=== PATIENT | female | born 1975 | race Caucasian/White ===

== ENCOUNTER → 2016-11-19 | Outpatient (CLI) | payer MEDICARE, OTHER | END | disposition home or self-care (01) | LOC: LABWHC1 10:08 | PROVIDERS: ATTEND Internal Medicine | DX: R10.9 Unspecified abdominal pain (principal) | CPT/HCPCS: 36415; 83690 ==

== ENCOUNTER → 2017-03-09 | Outpatient (CLI) | payer MEDICARE, OTHER ==
--- NOTE | 2017-03-09 15:28 | US ---
EXAMINATION TYPE: US kidneys/renal and bladder DATE OF EXAM: 03/09/2017 3:09 PM COMPARISON: None CLINICAL HISTORY: R31.9 Gross hematuria. Gross hematuria EXAM MEASUREMENTS: Right Kidney: 10.5 x 5.2 x 4.5 cm Left Kidney: 10.3 x 5.2 x 5.0 cm Right Kidney: wnl Left Kidney: wnl Bladder: Contracted Bilateral Jets seen There is no evidence for hydronephrosis at this point in time. No nephrolithiasis is seen. No pily s are identified. The urinary bladder is anechoic. Bilateral ureteral jets are seen. Cortical medullary differentiation is maintained. Kidneys are morphologically normal. Incidental note made of a cystic focus within the right lobe of liver measuring 2.6 cm. IMPRESSION: No significant abnormalities evident. Additional incidental findings above
== END | disposition home or self-care (01) ==
LOC: RADUSWWP 14:48
PROVIDERS: ATTEND Urology
DX: R31.0 Gross hematuria (principal)
CPT/HCPCS: 76770

== ENCOUNTER → 2017-04-09 | Outpatient (CLI) | payer MEDICARE, OTHER ==
--- NOTE | 2017-04-13 10:12 | MM ---
Reason for exam: additional evaluation requested from prior study. Last mammogram was performed 4 years and 9 months ago. History: Patient is postmenopausal. Family history of breast cancer in maternal grandmother at age 50, breast cancer in mother at age 40, and breast cancer in maternal aunt. Physical Findings: Nurse did not find any significant physical abnormalities on exam. MG 3D Diag Mammo W/Cad RYLEE Bilateral CC and MLO view(s) were taken. Prior study comparison: August 22, 2014, mammogram, performed at [facility]. The breast tissue is heterogeneously dense. This may lower the sensitivity of mammography. No significant new findings when compared with previous films. These results were verbally communicated with the patient and result sheet given to the patient on 04/09/17. ASSESSMENT: Benign, BI-RAD 2 RECOMMENDATION: Routine screening mammogram in 1 year if the ultrasound is negative. Ultrasound of the right breast. (in region of right breast palpable by patient) MTDD
== END | disposition home or self-care (01) ==
LOC: RADMAMWWP 14:59
PROVIDERS: ATTEND Surgery
DX: R92.8 Other abnormal and inconclusive findings on diagnostic imaging of breast (principal)
CPT/HCPCS: G0204; G0279

== ENCOUNTER → 2017-04-14 | Outpatient (CLI) | payer MEDICARE, OTHER ==
--- NOTE | 2017-04-14 11:23 | USB ---
Reason for exam: additional evaluation requested from abnormal screening. History: Patient is postmenopausal. Family history of breast cancer in maternal grandmother at age 50, breast cancer in mother at age 40, and breast cancer in maternal aunt. Physical Findings: Nurse Summary: patient states pain to touch at 7-8 o'clock, no palpable noted (nurse linnette). US Breast Workup RT Right breast ultrasound includes all four quadrants, the retroareolar region and axilla. Finding demonstrates no cystic or solid lesion seen. These results were verbally communicated with the patient and result sheet given to the patient on 04/14/17. ASSESSMENT: Negative, BI-RAD 1 RECOMMENDATION: Routine screening mammogram of both breasts in 1 year.
== END | disposition home or self-care (01) ==
LOC: RADUSWWP 10:23
PROVIDERS: ATTEND Surgery
DX: R92.8 Other abnormal and inconclusive findings on diagnostic imaging of breast (principal); Z80.3 Family history of malignant neoplasm of breast

== ENCOUNTER → 2017-06-22 | Outpatient (CLI) | payer MEDICARE, OTHER ==
[2017-06-22 11:12] LABS: Basophils # (A) 0.1 k/uL (0-0.2); Basophils % (A) 1 %; CHCM 36.4; Eosinophils # (A) 0.3 k/uL (0-0.7); Eosinophils % (A) 3 %; HCT 48.6 % (34.0-46.0); HDW 2.68; HGB 16.5 gm/dL (11.4-16.0); Luc # (Auto) 0.15; Luc % (Auto) 2; Lymphocytes # (A) 2.7 k/uL (1.0-4.8); Lymphocytes % (A) 32 %; MCH 31.9 pg (25.0-35.0); MCV 93.6 fL (80.0-100.0); Mean Platelet Volume 7.7; Monocytes # (A) 0.4 k/uL (0-1.0); Monocytes % (A) 5 %; Neutrophils # (A) 4.9 k/uL (1.3-7.7); Neutrophils % (A) 57 %; RBC 5.19 m/uL (3.80-5.40); RDW 13.8 % (11.5-15.5); WBC 8.5 k/uL (3.8-10.6); WBC (Perox) 8.71
[2017-06-22 11:33] LABS: Anion Gap 10 mmol/L; Blood Urea Nitrogen 11 mg/dL (7-17); Calcium 9.3 mg/dL (8.4-10.2); Carbon Dioxide 28 mmol/L (22-30); Chloride 101 mmol/L (98-107); Glucose 130 mg/dL (74-99); Non-African American GFR(MDRD) >60 (>60 ml/min/1.73 sqM); Potassium 3.5 mmol/L (3.5-5.1); Sodium 139 mmol/L (137-145)
== END | disposition home or self-care (01) ==
LOC: LABPAT 10:35
PROVIDERS: ATTEND Urology
DX: Z01.812 Encounter for preprocedural laboratory examination (principal); R35.0 Frequency of micturition; E78.5 Hyperlipidemia, unspecified; N39.46 Mixed incontinence
CPT/HCPCS: 80048; 85025; 87086

== ENCOUNTER 2017-07-08 06:01 | Day surgery (SDC) | payer MEDICARE, OTHER ==
[2017-07-02 13:54] VITALS: BMI 22.3
[~2017-07-08 06:01] MED LIST: GENTAMICIN 120 MG in SODIUM CHLORIDE 0.9% 100 ML IVPB ONE; ceFAZolin 2 GM in SODIUM CHLORIDE 0.9% 100 ML IVPB ONE
[2017-07-08] MEDS ORDERED: LACTATED RINGERS 1,000 ML IV ONE ×2 (06:40→08:56)
[2017-07-08] MEDS ORDERED: LIDOCAINE 1% 20 ML VIAL (10MG/ML) FOR IV START INTRADERMA ONE (06:41)
[2017-07-08] MEDS ORDERED: ONDANSETRON 4 MG/2 ML VIAL IVP ONE (07:05)
[2017-07-08] MEDS ORDERED: DEXAMETHASONE SOD PHOSPHATE 10 MG/ML 1 ML VIAL IV ONE (07:05)
--- NOTE | 2017-07-08 07:52 | P.HPOB ---
History of Present Illness H&P Date: 07/08/17 Chief Complaint: Vaginal prolapse Fe is a 41-year-old female with worsening cystocele. She has worsening stress urinary incontinence which has been present for 7-10 years but now is significantly worse. She did have vaginal hysterectomy for menorrhagia approximately 10 years ago. She feels like there is a large bulge and sheis even more as she wipes following voiding. She is scheduled for a anterior repair with sling from Dr. Wiseman. Risks/benefits/alternatives to this procedure were discussed with the patient in detail and all questions were answered for her prior to proceeding to the operating room it is noted that she reports that her partner's well and out and we will trying to minimal repair to try and save the size and caliber of her vagina but she is aware that should this be done she may not have adequate resolution of her cystocele. All questions are answered for she and her family prior to proceeding to the operating room. On physical exam vital signs are stable and afebrile. Heart regular, lungs clear, extremities without pain. Osteopathic exams unremarkable. Pelvic exam reveals a grade 2 cystocele. Assessment and cystocele. Plan anterior repair with sling from urology. Past Medical History Past Medical History: Asthma, Fibromyalgia, GERD/Reflux, Hyperlipidemia, Hypertension, Myocardial Infarction (HI), Rheumatoid Arthritis (RA), Skin Disorder Additional Past Medical History / Comment(s): palpitations, occ chest tightness( tests all neg per pt). migraines, IBS, psoriasis, urinary leakage, "bladder dropped", fx spine from fall injury in 2009 Last Myocardial Infarction Date:: 1998 History of Any Multi-Drug Resistant Organisms: None Reported Past Surgical History: Hysterectomy, Orthopedic Surgery, Tonsillectomy, Tubal Ligation Additional Past Surgical History / Comment(s): RT HEEL -warts removed, oophorectomy. spinal steroid injections, Past Anesthesia/Blood Transfusion Reactions: Family History of Problems w/ Anesthesia, Motion Sickness Additional Past Anesthesia/Blood Transfusion Reaction / Comment(s): "sister had hard time coming out" Smoking Status: Current every day smoker - Past Family History Father Family Medical History: Deep Vein Thrombosis (DVT) Mother Family Medical History: Deep Vein Thrombosis (DVT) Medications and Allergies Home Medications Medication Instructions Recorded Confirmed Type Hydrocodone/Acetaminophen [Blanch 1 - 2 tab PO Q4-6H PRN 04/19/14 07/08/17 History 10-325] Metoprolol Succinate [Toprol XL] 100 mg PO QAM 04/19/14 07/08/17 History Zolpidem [Ambien] 10 mg PO HS 07/19/15 07/08/17 History Hydrochlorothiazide 25 mg PO QAM 02/14/16 07/08/17 History [Hydrochlorothiazide] Albuterol Inhaler [Ventolin Hfa 2 puff INHALATION TID PRN 07/02/17 07/08/17 History Inhaler] Aspirin/Acetaminophen/Caffeine 2 each PO DAILY PRN 07/02/17 07/02/17 History [Excedrin Migraine Caplet] Gabapentin [Neurontin] 300 mg PO TID 07/02/17 07/08/17 History Ibuprofen 800 mg PO TID PRN 07/02/17 07/02/17 History Omeprazole 40 mg PO DAILY PRN 07/02/17 07/08/17 History diphenhydrAMINE [Benadryl] 100 mg PO HS 07/02/17 07/02/17 History Acetaminophen-Codeine 300-30mg 1 tab PO Q4H 07/08/17 07/08/17 History [Tylenol #3] Chlorhexidine Gluconate [Periogard] 15 ml PO BID 07/08/17 07/08/17 History Penicillin V Potassium [Pen Vee K] 1 tab PO QID 07/08/17 07/08/17 History Allergies Allergy/AdvReac Type Severity Reaction Status Date / Time ketorolac tromethamine Allergy Severe Dyspnea Verified 07/08/17 06:33 [From Toradol] pregabalin [From Lyrica] Allergy Rash/Hives Verified 07/08/17 06:33 varenicline tartrate Allergy Rash/Hives Verified 07/08/17 06:33 [From Chantix] hydromorphone HCl AdvReac Dyspnea Verified 07/08/17 06:33 [From Dilaudid] latex AdvReac Rash/Hives Verified 07/08/17 06:33 Latex, Natural Rubber AdvReac Rash/Hives Verified 07/08/17 07:06 nicotine patch AdvReac Unknown Rash/Hives Uncoded 07/08/17 06:33 Exam Osteopathic Statement: *. No significant issues noted on an osteopathic structural exam other than those noted in the History and Physical/Consult. - Vital Signs Vital signs: Vital Signs Temp Pulse Resp BP Pulse Ox 07/08/17 06:34 97.8 F 70 20 118/69 100
[2017-07-08] MEDS ORDERED: fentaNYL (PF) 50 MCG/ML 2 ML AMP ONE (07:58)
[2017-07-08] MEDS ORDERED: SUCCINYLCHOLINE CHLORIDE 100 MG/5 ML SYR IV ONE (07:58)
[2017-07-08] MEDS ORDERED: MIDAZOLAM 2 MG/2 ML VIAL ONE (07:58)
[2017-07-08] MEDS ORDERED: ePHEDrine SULFATE/0.9% NACL/PF 50 MG/5 ML SYRINGE IV ONE (07:58)
[2017-07-08] MEDS ORDERED: PROPOFOL 10 MG/ML 20 ML VIAL IV ONE (07:58)
[2017-07-08] MEDS ORDERED: LIDOCAINE 1% INJ 10MG/ML (20 ML MDV) ONE (07:58)
[2017-07-08] MEDS ORDERED: EPINEPHrine 1 MG/ML 1 ML AMP SQ ONE (08:27)
[2017-07-08] MEDS ORDERED: GENTAMICIN 40 MG/ML 2 ML VIAL IRRIGATION ONE (08:28)
[2017-07-08] MEDS ORDERED: BACITRACIN 500 UNIT/GM OINT 28.4 GM TUBE TOPICAL ONE (08:52)
--- NOTE | 2017-07-08 08:59 | P.OP ---
Date of Procedure: 07/08/17 Preoperative Diagnosis: Cystocele with stress urinary incontinence Postoperative Diagnosis: Same Procedure(s) Performed: Anterior repair and sling performed by urology Implants: Anesthesia: ROLAND Surgeon: Yeyo Kirk Cosmetics Presser #1: Nelson Washburn Pathology: none sent Condition: stable Disposition: floor Indications for Procedure: Operative Findings: Grade 2 cystocele repaired Description of Procedure: Patient was taken to the operating suite where a general anesthetic was found be adequate. She was prepped and draped in the normal sterile fashion and placed in the dorsal lithotomy position. Initially a weighted speculum was inserted into the vagina and apex of the cystocele was identified. It was grasped into Allis clamps and dilute epinephrine solution was injected subcuticularly. Knife was then used to incise this tissue and then Metzenbaum scissor was used to undermine the tissue and continue the incision to approximately 1 cm below the urethra. Once this was accomplished using Allis clamps delineating the boundaries of the cystocele blunt and sharp dissection the cystocele was done. Was dissected back far enough for sling to be placed and then 3 Cherelle plication sutures were placed underneath the bladder. Once this was accomplished placed a Monarc sling please see his dictation for information regarding this procedure. Once this was completed I did return and placed one last Cherelle plication suture underneath the urethral area and then using Metzenbaum scissors excision of excess vaginal mucosa was done and the full incision was then closed with 0 Vicryl suture in a running locking fashion. Once this was accomplished Zapata cath was replaced and vaginal packing was placed in the vagina. Sponge, lap, needle counts were then all correct 2 and patient was taken to the recovery room in stable and satisfactory condition.
--- NOTE | 2017-07-08 09:07 | P.OP ---
Date of Procedure: 07/08/17 Preoperative Diagnosis: Mixed Urinary Incontinence Postoperative Diagnosis: Same Procedure(s) Performed: Obtryx Trans-Obturator Sling Implants: Anesthesia: CRISTINA Surgeon: Nelson Washburn Manager Investment #1: Yeyo Kirk Estimated Blood Loss (ml): 40 IV fluids (ml): 900 Pathology: none sent Condition: stable Disposition: PACU Indications for Procedure: She is a 41-year-old woman with mixed incontinence. The stress component is predominant, and requires the use of approximately 4 pads daily. Examination reveals evidence of a grade 2 cystocele, along with urethral hypermobility. Stress incontinence is demonstrated, and a Lico test is positive. I reviewed alternative treatment options with the patient in detail. I explained the need for a concurrent cystocele repair. I discussed the controversy regarding the use of synthetic slings with her. She has elected to undergo an anterior repair with TOT sling. She understands that the urge component of her incontinence may worsen following this procedure. She has experienced gross hematuria. A renal ultrasound showed no urologic abnormalities. Cystoscopy revealed a slight irregularity adjacent to the left ureteral orifice, not suspicious for malignancy. Urine cytology was negative. A bladder biopsy will be obtained if the bladder lesion is suspicious at the time of surgery. Operative Findings: No abnormalities noted other than cystocele. Description of Procedure: The patient was taken to the operating room and placed in the dorsal lithotomy position, with her legs supported in Reji stirrups. The perineum, lower abdomen, and vagina were prepped and draped sterilely. A 16-Bermudian Zapata catheter was placed. Dr. Kirk made an anterior midline vaginal incision over the urethra and reduced the cystocele. Metzenbaum scissors were used to dissect laterally within the submucosal plane, to the inferior pubic ramus. The scalpel was used to make bilateral groin incisions at the level of the clitoris. Subcutaneous tissues were spread with a hemostat. Each of the helical needles were passed through the respective groin incision, and turned such that the needle tip wrapped around the pubis. The needle tips were guided digitally into the vaginal incision. The Obtryx graft, which had been previously soaked in antibiotic solution, was secured to the needle tips in the standard fashion. The needles were then withdrawn, and the position of the graft was adjusted such that it overlie the mid urethra, as desired. With a hemostat placed between the graft and the urethra to prevent tension of the graft over the urethra, the plastic sheath was removed from the ends of the graft. The ends of the graft were cut beneath the skin incisions, and these incisions were closed using 4-0 Vicryl suture in a subcuticular fashion. Hemostasis within the vaginal incision was adequate, and the vaginal incision was closed using 2-0 Vicryl suture in a running fashion. Cystoscopy was performed. The 30 lens was used to introduce the 19-Bermudian Storz cystoscopic sheath through the urethra and into the bladder under direct vision. The urethra and bladder were unremarkable. There was no evidence of perforation. Both ureteral orifices were of normal anatomic location and configuration, and clear urine effluxed from both. No tumors or foreign bodies were seen. Specifically, and adjacent to the left ureteral orifice was a small area of squamous metaplasia, not suspicious for malignancy. The cystoscope was removed, and the Zapata catheter was replaced into the bladder. Dr. Kirk at this time placed sutures to complete the anterior repair. He excised the redundant vaginal mucosa and closed the vaginal incision with Vicryl suture in a running fashion. Vaginal packing was placed. All sponge and needle counts were correct. The patient tolerated the procedure well was taken to the recovery room in stable condition.
[2017-07-08] MEDS ORDERED: ONDANSETRON 4 MG/2 ML VIAL IVP PRN (09:08)
[2017-07-08] MEDS ORDERED: HYDROcodone/APAP 5-325MG 1 EACH TAB PO PRN ×2 (09:10)
[2017-07-08] MEDS ORDERED: GENTAMICIN IN NACL ISO-OSM PMX 80 MG in SALINE 1 100ML.BAG IVPB STA (09:17)
[2017-07-08] MEDS: HYDROmorphone 1 MG/ML 1 ML SYRINGE IVP ONE ×4 (09:22→09:39)
[2017-07-08] MEDS ORDERED: PANTOPRAZOLE 40 MG TABLET PO PRN (13:33)
[2017-07-08] MEDS ORDERED: ASPIRIN-ACET-CAFF 250-250-65MG 1 EACH TAB PO PRN (13:33)
[2017-07-08] MEDS ORDERED: ALBUTEROL NEBULIZED 2.5 MG/3 ML INHALATION PRN (13:33)
[2017-07-08] MEDS: NICOTINE 21MG/24HR PATCH TRANSDERM SCH (14:05)
[2017-07-08] MEDS ORDERED: GENTAMICIN IN NACL ISO-OSM PMX 80 MG in SALINE 1 100ML.BAG IVPB ONE ×2 (15:00)
[2017-07-08] MEDS ORDERED: GENTAMICIN 80 MG in SODIUM CHLORIDE 0.9% 100 ML IVPB ONE (15:00)
[2017-07-08] MEDS: HYDROcodone/APAP 10-325MG 1 EACH TAB PO PRN ×2 (15:34→20:25)
[2017-07-08] MEDS: DEXTROSE 5%-0.45% NACL 1,000 ML IV SCH (15:38)
[2017-07-08] MEDS: GABAPENTIN 300 MG CAP PO SCH ×2 (15:38→22:06)
[2017-07-08] MEDS: ceFAZolin 1,000 MG in DEXTROSE/WATER 1 50ML.BAG IVPB SCH ×2 (15:58→23:57)
[2017-07-08] MEDS ORDERED: ceFAZolin 1 GM in SODIUM CHLORIDE 0.9% 100 ML IVPB SCH (16:00)
[2017-07-08] MEDS: IBUPROFEN 800 MG TAB PO PRN (18:29)
[2017-07-08] MEDS ORDERED: ZOLPIDEM 10 MG TAB PO SCH (21:00)
[2017-07-09 00:19] VITALS: RESP 16
[2017-07-09] MEDS: DEXTROSE 5%-0.45% NACL 1,000 ML IV SCH (03:31)
[2017-07-09] MEDS: HYDROcodone/APAP 10-325MG 1 EACH TAB PO PRN (07:45)
[2017-07-09] MEDS: ceFAZolin 1,000 MG in DEXTROSE/WATER 1 50ML.BAG IVPB SCH (07:57)
[2017-07-09 08:04] VITALS: BP 105/67; PULSE 80; TEMP 98.2
[2017-07-09] MEDS: GABAPENTIN 300 MG CAP PO SCH (08:05)
[2017-07-09] MEDS: NICOTINE 21MG/24HR PATCH TRANSDERM SCH (08:06)
[2017-07-09] MEDS ORDERED: METOPROLOL SUCCINATE (ER) 100 MG TAB.ER.24H PO SCH (09:00)
[2017-07-09] MEDS ORDERED: HYDROCHLOROTHIAZIDE 25 MG TAB PO SCH (09:00)
[2017-07-09] MEDS: IBUPROFEN 800 MG TAB PO PRN (09:30)
--- NOTE | 2017-07-09 13:06 | P.DS ---
Providers Expected date of discharge: 07/09/17 Attending physician: Nelson Washburn Primary care physician: Stated None Hospital Course: On the day of admission, the patient underwent an anterior repair with Obtryx trans-obturator sling. The perioperative course was unremarkable. The Zapata catheter was removed on the first postoperative day, and she was able to void. She reported some hesitancy, but bladder emptying was adequate. She denies stress incontinence. She experienced some right hip pain, which is chronic for her. This was improving as she ambulated. She reported right medial groin pain , which she states she has been experiencing recently but it has worsened postoperatively. She also reports mild dysuria. She has been afebrile with stable vital signs. Her blood pressure was somewhat low, and her Metoprolol was held for this reason. Procedures: Anterior repair with Obtryx trans-obturator sling on 07/08/2017. Patient Condition at Discharge: Good Plan - Discharge Summary New Discharge Prescriptions: New Cephalexin [Keflex] 500 mg PO Q8HR #15 cap HYDROcodone/APAP 10-325MG [[place] 10-325] 1 tab PO Q4HR PRN #20 tab PRN Reason: Moderate To Severe Pain No Action Hydrocodone/Acetaminophen [[place] 10-325] 1 - 2 tab PO Q4-6H PRN PRN Reason: Pain Metoprolol Succinate [Toprol XL] 100 mg PO QAM Zolpidem [Ambien] 10 mg PO HS Hydrochlorothiazide [Hydrochlorothiazide] 25 mg PO QAM Gabapentin [Neurontin] 300 mg PO TID Ibuprofen 800 mg PO TID PRN PRN Reason: Pain Omeprazole 40 mg PO DAILY PRN PRN Reason: Heartburn Albuterol Inhaler [Ventolin Hfa Inhaler] 2 puff INHALATION TID PRN PRN Reason: sob Aspirin/Acetaminophen/Caffeine [Excedrin Migraine Caplet] 2 each PO DAILY PRN PRN Reason: Headache diphenhydrAMINE [Benadryl] 100 mg PO HS Chlorhexidine Gluconate [Periogard] 15 ml PO BID Penicillin V Potassium [Pen Vee K] 1 tab PO QID Acetaminophen-Codeine 300-30mg [Tylenol #3] 1 tab PO Q4H Discharge Medication List Hydrocodone/Acetaminophen [[place] 10-325] 1 - 2 tab PO Q4-6H PRN 04/19/14 [ History] Metoprolol Succinate [Toprol XL] 100 mg PO QAM 04/19/14 [History] Zolpidem [Ambien] 10 mg PO HS 07/19/15 [History] Hydrochlorothiazide [Hydrochlorothiazide] 25 mg PO QAM 02/14/16 [History] Albuterol Inhaler [Ventolin Hfa Inhaler] 2 puff INHALATION TID PRN 07/02/17 [ History] Aspirin/Acetaminophen/Caffeine [Excedrin Migraine Caplet] 2 each PO DAILY PRN [History] Gabapentin [Neurontin] 300 mg PO TID 07/02/17 [History] Ibuprofen 800 mg PO TID PRN 07/02/17 [History] Omeprazole 40 mg PO DAILY PRN 07/02/17 [History] diphenhydrAMINE [Benadryl] 100 mg PO HS 07/02/17 [History] Acetaminophen-Codeine 300-30mg [Tylenol #3] 1 tab PO Q4H 07/08/17 [History] Chlorhexidine Gluconate [Periogard] 15 ml PO BID 07/08/17 [History] Penicillin V Potassium [Pen Vee K] 1 tab PO QID 07/08/17 [History] Cephalexin [Keflex] 500 mg PO Q8HR #15 cap 07/09/17 [Rx] HYDROcodone/APAP 10-325MG [[place] 10-325] 1 tab PO Q4HR PRN #20 tab 07/09/17 [Rx] Follow up Appointment(s)/Referral(s): Nelson Washburn MD [STAFF PHYSICIAN] - 07/14/17 2:40 pm (You have an appointment with Dr Washburn on Wednesday, July 14, 2017 at 2:40 pm) Patient Instructions/Handouts: How to Stop Smoking (DC), How to Use an Incentive Spirometer (DC), Cigarette Smoking and Your Health (GEN), Anterior Vaginal Repair (DC), Bladder Sling Procedure (DC) Activity/Diet/Wound Care/Special Instructions: Activity as tolerated, rest as needed. No housework, no stooping or bending, no driving, no heavy lifting, no tub baths , no pools, no hot tubs. May shower. Use incentive spirometer every hour for the next several days. Notify Dr Washburn if you develop a fever, increase in pain, bleeding from your incisions or your vagina. Notify Dr Washburn if you have any difficulty in urinating. Drink plenty of fluids. Discharge Disposition: HOME SELF-CARE
== END 2017-07-09 13:25 | disposition home or self-care (01) ==
LOC: OR 06:01 → 6PED 09:08 → OR 07-09 13:25
PROVIDERS: ATTEND Urology
DX: N39.46 Mixed incontinence (principal); N81.10 Cystocele, unspecified; G89.29 Other chronic pain; M25.551 Pain in right hip; Z90.710 Acquired absence of both cervix and uterus; J45.909 Unspecified asthma, uncomplicated; M79.7 Fibromyalgia; K21.9 Gastro-esophageal reflux disease without esophagitis; E78.5 Hyperlipidemia, unspecified; I10 Essential (primary) hypertension; M06.9 Rheumatoid arthritis, unspecified; K58.9 Irritable bowel syndrome, unspecified; G43.909 Migraine, unspecified, not intractable, without status migrainosus; L40.9 Psoriasis, unspecified; F17.200 Nicotine dependence, unspecified, uncomplicated; I25.2 Old myocardial infarction; Z79.899 Other long term (current) drug therapy; Z88.5 Allergy status to narcotic agent; Z88.8 Allergy status to other drugs, medicaments and biological substances; Z91.040 Latex allergy status
CPT/HCPCS: 57288; 57240; C1771; S4990 ×2; J2250; J0171; J1580 ×2; J1100; J0690 ×3; J2405; J2001; J3010; J1170; J0330; J2704

== ENCOUNTER → 2018-03-03 | Outpatient (CLI) | payer MEDICARE, OTHER ==
[2018-03-03 13:04] VITALS: BP 129/84; PULSE 79; RESP 79
--- NOTE | 2018-03-03 13:38 | P.PAINPG ---
Subjective Progress Note Date: 03/03/18 Principal diagnosis: Lumbar spondylosis This is a 42-year-old woman with a history of pain in multiple locations. She has a history of low back pain which was treated very successfully with a lateral lumbar radio frequency ablation proxy 4 years ago. She reports the symptoms have returned and she has significant pain in her low back and buttocks at this time. She also has pain in her neck which radiates into her shoulder blades and arms. She had a recent cervical MRI which demonstrated a C5 6 left paracentral disc protrusion as well as a C6 7 right paracentral disc protrusion. She has pain in her hands it is going to be seeing a hand specialist near future. She also scheduled to see a lead android developer. She denies any bowel or bladder dysfunction. Objective - Vital Signs Vital signs: Vital Signs 03/03/18 13:01 Pulse Rate 79 Respiratory 79 H Rate Blood Pressure 129/84 O2 Sat by Pulse 99 Oximetry Physical Examination : 1-Constitutional : Cooperative , not in acute distress . 2-HEENT : No obvious masses. Normocephalic. 3- Respiratory : Chest clear to auscultation. 4- Cardiovascular : regular rate and rhythm. 5- Gastrointestinal: abdomen soft no tenderness , bowel sounds positive all four quadrants, no organomegaly . 6- Genitourinary : Deferred . 7- Integumentary : No cellulitis , no ulcers, normal skin turgor, no cyanotic. 8- neurologic : She does trace decreased strength in the upper extremities globally however this seems to be effort dependent. 9- psychatric : alert, oriented, appropriate affect , intact judgment and insight . Affect congruent with situation. 10- musculoskeltal: normal gait, facet loading maneuvers are very positive bilaterally in the lumbar spine. Straight leg raise is negative bilaterally. She is tender to palpation over the lumbar facet joints. Cervical facet loading maneuvers are also positive. - Exam Physical Examination : 1-Constitutional : Cooperative, anxious appearing. Hypomanic. 2-HEENT : No obvious masses. Normocephalic. 3- Respiratory : Chest clear to auscultation. 4- Cardiovascular : Tachycardic 5- Gastrointestinal: abdomen soft no tenderness , bowel sounds positive all four quadrants, no organomegaly . 6- Genitourinary : Deferred . 7- Integumentary : No cellulitis , no ulcers, normal skin turgor, no cyanotic. 8- neurologic : No focal motor or sensory deficits reflexes intact at the patella bilaterally 9- psychatric : alert, oriented, appropriate affect , intact judgment and insight . 10- musculoskeltal: normal gait Assessment and Plan Plan: Follow-up plan: Medications: Patient will follow up with her primary care physician for medications. Procedures: We'll schedule patient for right-sided lumbar radio frequency ablation at the L4, L5 and sacral alar levels. She had this performed approxi- 4 years ago and it was very successful. We will then follow up with a left- sided radio frequency ablation of the lumbar spine in the aforementioned levels. Once her low back is under good condition we will move on to a cervical epidural steroid injection to help with her upper extremity pain and numbness. Referrals: None Additional tests ordered: None Next follow-up visit: Right lumbar radiofrequency ablation with fluoroscopy and sedation Time with Patient: Less than 30 PQRS Measure Charge Sheet Measure #226: Tobacco Use: Screen & Cessation Intervention: Pt screened for tobacco use AND intervention given Measure #111: Pneumonia Vaccination: Pneumococcal vaccine NOT administered or previously given Measure #47: Advance Care Plan: Advance care planning discussed & documented, pt chose/unable to give Measure #408: Opioid Therapy Follow-up Evaluation: Patient had NO f/u eval minimum every 3 months during opioid therapy Measure #317: Preventitive Care & Scrn High Bld Press & F/U: Normal blood pressure, f/u not required Measure #128: Body Mass Index (BMI) Screening & Follow-up: BMI documented within normal parameters Measure #131: Pain Assessment & Follow-up: Pain positive & plan documented Measure #431: Unhealthy Alcohol Use Preventative Care & Scrn: Patient not identified as an unhealthy alcohol user PQRS Narrative: Smoking Status Current every day smoker Narcotic Agreement Date Signed 02/12/14 Hx Alcohol Use (MH) Yes Home Medications: Ambulatory Orders Hydrocodone/Acetaminophen [[place] 10-325] 1 - 2 tab PO Q4-6H PRN 04/19/14 Metoprolol Succinate [Toprol XL] 100 mg PO QAM 04/19/14 Zolpidem [Ambien] 10 mg PO HS 07/19/15 Hydrochlorothiazide [Hydrochlorothiazide] 25 mg PO QAM 02/14/16 Albuterol Inhaler [Ventolin Hfa Inhaler] 2 puff INHALATION TID PRN 07/02/17 Aspirin/Acetaminophen/Caffeine [Excedrin Migraine Caplet] 2 each PO DAILY PRN Gabapentin [Neurontin] 300 mg PO TID 07/02/17 Ibuprofen 800 mg PO TID PRN 07/02/17 Omeprazole 40 mg PO DAILY PRN 07/02/17 diphenhydrAMINE [Benadryl] 100 mg PO HS 07/02/17 Acetaminophen-Codeine 300-30mg [Tylenol #3] 1 tab PO Q4H 07/08/17 Chlorhexidine Gluconate [Periogard] 15 ml PO BID 07/08/17 Penicillin V Potassium [Pen Vee K] 1 tab PO QID 07/08/17 Cephalexin [Keflex] 500 mg PO Q8HR #15 cap 07/09/17 HYDROcodone/APAP 10-325MG [[place] 10-325] 1 tab PO Q4HR PRN #20 tab 07/09/17 Albuterol Nebulized [Ventolin Nebulized] 2.5 mg INHALATION QID PRN #125 nebu 04/17 Ondansetron Odt [Zofran Odt] 4 mg PO Q8HR PRN #10 tab 10/06/17 Potassium Chloride ER [K-Dur 20] 20 meq PO DAILY #3 tab 10/06/17 Controlled Substance Measures - Controlled Substance Measures Is patient prescribed a controlled substance at discharge?: No If prescribed controlled substance>3 days was MAPS reviewed?: No When asked, does pt state using other controlled substances?: No
== END ==
LOC: PNWHC3 12:39
PROVIDERS: ATTEND Pain Medicine Pain Medicine
DX: M47.816 Spondylosis without myelopathy or radiculopathy, lumbar region (principal); F17.200 Nicotine dependence, unspecified, uncomplicated; Z79.899 Other long term (current) drug therapy; Z79.891 Long term (current) use of opiate analgesic; Z79.2 Long term (current) use of antibiotics; Z79.82 Long term (current) use of aspirin
CPT/HCPCS: 99211

== ENCOUNTER 2018-04-04 06:46 | Day surgery (SDC) | payer MEDICARE, OTHER ==
[2018-03-30 09:52] VITALS: BMI 24.0
[2018-04-04 07:57] VITALS: RESP 16; TEMP 97
[2018-04-04] MEDS ORDERED: LIDOCAINE 1% 20 ML VIAL (10MG/ML) FOR IV START INTRADERMA ONE (08:00)
[2018-04-04] MEDS: LACTATED RINGERS 1,000 ML IV SCH ×2 (08:00→08:02)
--- NOTE | 2018-04-04 08:29 | P.PCN ---
Date of Procedure: 04/04/18 Procedure(s) Performed: PREOPERATIVE DIAGNOSIS: 1-Lumbar Spondylosis with Facet Arthropathy without myelopathy. 2- Lumber degenerative disc disease. POSTOPERATIVE DIAGNOSIS: 1- Lumbar Spondylosis with Facet Arthropathy without myelopathy. 2- Lumber degenerative disc disease. PROCEDURES : Right Radiofrequency thermocoagulation, L3-L4, L4-L5, and L5-S1 medial branch, with fluoroscopic guidance ANESTHESIA: Moderate sedation with intravenous versed 4 mg and fentaneyl 150 mcg and local infiltration with lidocaine 1% 6 ml EBL: Minimal PROCEDURE INDICATION: The patient with low back pain secondary to lumbar facet arthropathy who had more than 50% relief of her pain with previous diagnostic lumbar medial branch block with bupivacaine.,we have done radiofrequency ablation of the medial branch in the past, and she gets excellent pain relief She is here today to have this radiofrequency ablation of the medial branch, examination today was positive for facet loading this and the lumbar area PROCEDURE DESCRIPTION / TECHNIQUE: The patient was seen and identified in the preoperative area. Risks, benefits, complications, including but not limited to risk of infection ,bleeding , allergic reactions to the medications and no complete pain releife , and alternatives were discussed with the patient, the patient agreed to proceed with the procedure and signed the consent. IV was started. Vital signs remained stable throughout the procedure. Patient was taken to the OR and time out was completed. The patient was placed in the prone position on the procedure table. The lumber area was prepped and draped in the usual sterile fashion. . Vital signs were closely monitored during the procedure .IV sedation was used during the procedure to decrease patients anxiety. Using AP and then oblique fluoroscopy, the ``eye of the Carlo dog corresponding to the connection between the superior and transverse articular processes of right L3, L4, and L5 were identified, marked, and localized with 1 % lidocaine. Subsequently, a 18 [id number] radiofrequency cannula with a 10- mm active tip was advanced guided by fluoroscopy to each of the ``eyes of the Carlo dog at right L3, L4, and L5. Each site then underwent sensory testing at 50 Hz and 0 to 1 volt and motor testing at 2.5 Hz and 0 to 3 volt with local stimulation, but no radicular symptoms down the legs. Thereafter the right L3-4, L4-5, and L5-S1 sites underwent radiofrequency thermocoagulation at 80 degrees celsius for 90 seconds after injecting 0.5 ml of PF lidocaine 1%. then After the thermocoagulation done , 1 ml of the block solution containing Kenalog 40 mg and 3 ml of marcain 0.5% was injected at the right L3-4 , L4-5 , and L5-S1, levels after negative aspiration of CSF and blood and with no paresthesias. Cannulas were retracted while injecting lidocaine 1% until the needle is out. At the end of the procedure, the skin was cleansed and bandages were applied. COMPLICATIONS: No acute complications. DISPOSITION / PLANS: The patient was placed in a supine position and transferred to the recovery area in a stable condition for observation and was discharged from the recovery room after meeting discharge criteria. Home discharge instructions given to the patient by the staff. The patient was reexamined prior to discharge. The patient will schedule a follow up in the clinic in 2-4 weeks.
[2018-04-04] MEDS ORDERED: IV FLUID CONTINUATION 1,000 ML IV ONE (08:32)
[2018-04-04 08:50] VITALS: BP 125/86; PULSE 70
--- NOTE | 2018-04-04 10:39 | FL ---
Fluoroscopy HISTORY: Pain 12 seconds fluoroscopy time supplied to the referring clinician. 3 intraoperative C-arm images docum ent the procedure. See dictated report from anesthesia.
== END 2018-04-04 09:08 | disposition home or self-care (01) ==
LOC: ORPAIN 06:46
PROVIDERS: ATTEND Specialist
DX: M47.816 Spondylosis without myelopathy or radiculopathy, lumbar region (principal); M51.36 Other intervertebral disc degeneration, lumbar region; J45.909 Unspecified asthma, uncomplicated; I10 Essential (primary) hypertension; Z88.5 Allergy status to narcotic agent; Z88.6 Allergy status to analgesic agent; Z91.040 Latex allergy status; Z88.8 Allergy status to other drugs, medicaments and biological substances
CPT/HCPCS: 64635; 64636 ×2; J2250; J3301; J3010; 99152

== ENCOUNTER → 2018-04-26 | Outpatient (CLI) | payer MEDICARE, OTHER ==
[2018-04-26 12:20] VITALS: BP 117/65; PULSE 84; RESP 18
--- NOTE | 2018-04-26 16:21 | P.PAINPG ---
Subjective Progress Note Date: 04/26/18 This is follow-up visit for this patient with a history of severe and chronic low back pain secondary to lumbar degenerative disc disease, lumbar facet arthropathy, We have done an interventional pain procedure status post radiofrequency ablation of the medial branch lumbar area right-sided L3 4/L4 5/L5-S1 which was done in April 2018, she reported that her low back pain improved significantly, and currently she is complaining of severe neck pain, occasional headache and also she is complaining of severe mid back pain, Patient denies any motor or sensory deficit, denies any change in the bowel movement or urination, patient denies any fever or night sweats. Objective - Vital Signs Vital signs: Vital Signs Temp Pulse 84 04/26/18 12:08 Resp 18 04/26/18 12:08 BP 117/65 04/26/18 12:08 Pulse Ox 96 04/26/18 12:08 Intake & Output 04/25/18 04/26/18 04/26/18 18:59 06:59 18:59 Weight 63.503 kg - Exam Physical Examinations : 1-Constitutiona : Cooperative , not in acute distress . 2-HEENT : nech ; supple , no Lymphadenopathy , normal thyroid size . eyes : no ptosis , no icterus , no photophobia . ENT : normal of hearing , normal oropharynx , no Thrush . 3- Respiratory : Chest clear to auscultations Bilaterally , no wheezing , no Rhonchi . 4- Cardiovascular : regular rate and rhythem , S1 , S2 , no S3 , no S4. 5- Gastrointestinal : abdomen soft no tenderness , bowel sounds , no organomegally . 6- Genitourinary : Defferred . 7- neurologic : Cranial nerve II to XII intact , no focal neurological deffecit . 8-psychatric : alert , oriented X 3 , appropriate affect , intact judgment and insight . 9-Lymphatic : no Lymphadenopathy . 10- musculoskeltal : cervical spine = motor stregnth in the deltoid and biceps, motor stregnth biceps and the wrist extensors (C6) . motor stregnth in the triceps muscle . deep tendon reflexes normal at the biceps Right , Left normal at the brachioradia Right , Left Normal at the triceps Right ,Left cervical facet loading test positive. Multiple trigger point identified in the thoracic paravertebral muscles T7 to T9 levels After facet loading test thoracic area , Lumber spine = normal moter stegnth lower extremities ,thigh and legs .5/5 deep tendon reflexes : normal Knee Jerk , normal ankle Jerk . MRI of the cervical spine reviewed and it showed that patient had C5 6 and C6 7 disc protrusion Assessment and Plan Plan: Assessment and plan=1-chronic severe low back pain secondary to lumbar spondylosis Pain improved after the radiofrequency ablation of the medial branch lumbar area right side L3/L4 5/L5-S1 2-mid back pain secondary to myofascial pain syndrome thoracic area patient could benefit from trigger point injection thoracic area. 3-neck pain secondary to cervical disc protrusion C5-C6 C6 7 levels patient could benefit from cervical epidural steroid injections Procedure risk and benefits and alternatives were discussed with the patient she agreed with the preceding PQRS Measure Charge Sheet Measure #130: Documentation of Current Meds in Medical Chart: Patient's medications documented in chart Measure #226: Tobacco Use: Screen & Cessation Intervention: Pt screened for tobacco use AND intervention given Measure #111: Pneumonia Vaccination: Pneumococcal vaccine NOT administered or previously given Measure #47: Advance Care Plan: Advance care planning discussed & documented, plan or surrogate given Measure #412: Opioid Treatment Agreement: No documentation of signed opioid treatment agreement Measure #408: Opioid Therapy Follow-up Evaluation: Patient had NO f/u eval minimum every 3 months during opioid therapy Measure #317: Preventitive Care & Scrn High Bld Press & F/U: Normal blood pressure, f/u not required Measure #128: Body Mass Index (BMI) Screening & Follow-up: BMI documented within normal parameters Measure #131: Pain Assessment & Follow-up: Pain positive & plan documented, Follow-up scheduled Measure #431: Unhealthy Alcohol Use Preventative Care & Scrn: Patient not identified as an unhealthy alcohol user PQRS Narrative: Smoking Status Current every day smoker Do You Want the Pneumonia No Vaccine AT THIS TIME? Narcotic Agreement Date Signed 02/12/14 Blood Pressure 117/65 Pain Intensity [Neck] 4 Pain Intensity [Upper Back] 6 Hx Alcohol Use (MH) Yes Home Medications: Ambulatory Orders Metoprolol Succinate [Toprol XL] 100 mg PO QAM 04/19/14 Zolpidem [Ambien] 10 mg PO HS 07/19/15 Hydrochlorothiazide [Hydrochlorothiazide] 25 mg PO QAM 02/14/16 Gabapentin [Neurontin] 300 mg PO TID PRN 07/02/17 Ibuprofen 800 mg PO TID PRN 07/02/17 Omeprazole 40 mg PO DAILY PRN 07/02/17 Atorvastatin [Lipitor] 1 tab PO HS 03/03/18 Ergocalciferol (Vitamin D2) [Vitamin D2] 1 tab PO WEEKLY 03/03/18 Fluticasone Propionate [Flovent Hfa 110mcg] 1 puff INHALATION BID PRN 03/03/18 Magnesium 1 cap PO DAILY 03/03/18 Mirtazapine [Remeron] 7.5 mg PO HS 03/03/18 Potassium Chloride ER [K-Dur 20] 20 meq PO TID 03/03/18 Controlled Substance Measures - Controlled Substance Measures Is patient prescribed a controlled substance at discharge?: No When asked, does pt state using other controlled substances?: No If prescribed controlled substance>3 days was MAPS reviewed?: No If Rx opioid, was Start Talking consent form obtained?: No If opioid is for acute pain is fill amount 7 days or less?: No Was information provided regarding opioid addiction?: No
== END | disposition home or self-care (01) ==
LOC: PNWHC3 11:58
PROVIDERS: ATTEND Specialist
DX: G89.29 Other chronic pain (principal); M54.5 Low back pain; M51.36 Other intervertebral disc degeneration, lumbar region; M47.816 Spondylosis without myelopathy or radiculopathy, lumbar region; M46.86 Other specified inflammatory spondylopathies, lumbar region; M50.222 Other cervical disc displacement at C5-C6 level; M79.1 Myalgia; F17.200 Nicotine dependence, unspecified, uncomplicated; Z79.1 Long term (current) use of non-steroidal anti-inflammatories (NSAID); Z79.899 Other long term (current) drug therapy
CPT/HCPCS: 99211

== ENCOUNTER 2018-05-10 09:12 | Day surgery (SDC) | payer MEDICARE, OTHER ==
[2018-05-09 12:23] VITALS: BMI 24.0
[~2018-05-10 09:12] MED LIST changes: -GENTAMICIN 120 MG in SODIUM CHLORIDE 0.9% 100 ML IVPB ONE; +LACTATED RINGERS 1,000 ML IV SCH; -ceFAZolin 2 GM in SODIUM CHLORIDE 0.9% 100 ML IVPB ONE
[2018-05-10] MEDS ORDERED: LIDOCAINE 1% 20 ML VIAL (10MG/ML) FOR IV START INTRADERMA ONE (10:33)
[2018-05-10 10:42] VITALS: RESP 16; TEMP 98.3
--- NOTE | 2018-05-10 12:29 | P.PCN ---
Date of Procedure: 05/10/18 Procedure(s) Performed: . PROCEDURE 1. Cervical epidural steroid injection under fluoroscopic guidance, C7-T1 2. Cervical epidurogram. 3-trigger point injection thoracic paravertebral muscles (3 on the right side and 2 on the left side mid thoracic area ) PREOPERATIVE DIAGNOSIS: 1- Cervical Herniated Disc Diseases 2-myofascial pain syndrome thoracic area. POSTOPERATIVE DIAGNOSIS: : Same as preoperative diagnosis. ANESTHESIA: Local anesthesia with 1% lidocaine and IV sedation with Versed 3 mg and Fentanyl 100 mcg. EBL 0 PROCEDURE INDICATION: The patient with neck pain and radiculitis unresponsive to conservative treatment consents for procedure. PROCEDURE DESCRIPTION / TECHNIQUE: The patient was seen and identified in the preoperative area. Risks, benefits, complications, including but not limited to infections ,bleeding , allergic reactions to the medications ,and not complete pain releife, and alternatives were discussed with the patient, the patient agreed to proceed with the procedure and signed the consent. Patient was taken to the OR and time out was completed. The patient was placed in the prone position on the procedure table. A pillow was placed under the patients chest to increase the cervical interlaminar space. The cervical area was prepped and draped in the usual sterile fashion. Vital signs were closely monitored during the procedure. Conscious sedation was used during the procedure to decrease patients anxiety. Using anterior-posterior fluoroscopy, the C7-T1 interlaminar space was identified and the skin over this site was marked and then infiltrated with 1% lidocaine subcutaneously. Subsequently, a 20-gauge 3-1/2-inch Tuohy epidural needle was inserted and advanced toward the epidural space by means of the `` hanging-drop technique and guided by AP and lateral fluoroscopy. The correct needle position in the epidural space was verified with the injection of 2 mL of the water soluble contrast dye [id number] and observing an excellent epidurogram with the epidural spread of the dye, after negative aspiration for blood and CSF and in the absence of paresthesias. Again after negative aspiration, mixture containing 20 mg Dexamethasone and 2 ml of preservative- free normal saline injected and a washout of epidurogram was seen. Needle was withdrawn intact, And after the the trigger point which was identified in the preop holding area total of 5 trigger points identified 3 on the right side thoracic paravertebral muscles and 2 on the left side thoracic paravertebral muscles each one of them injected with Marcaine 0.5% 2 mL injected at each trigger point using 25-gauge needle, injection done after negative aspiration and there was no paresthesia during the injection, patient tolerated the procedure well without any complications. Complications= none. Disposition= patient was placed in supine position and transferred to the recovery room area in stable condition and there was no evidence of upper or lower extremity motor or sensory deficit after the procedure patient was discharged from recovery room after discharge criteria met and home discharge instructions was given by the staff and patient will follow with the pain clinic in 2-4 weeks
[2018-05-10] MEDS ORDERED: IV FLUID CONTINUATION 1,000 ML IV ONE ×2 (12:34)
--- NOTE | 2018-05-10 12:51 | FL ---
EXAMINATION TYPE: FL guided pain mgmt statistic DATE OF EXAM: 05/10/2018 CLINICAL HISTORY: Neck pain. TECHNIQUE: Fluoroscopy. COMPARISON: None. FINDINGS: Fluoroscopic guidance was provided during pain relief procedure performed by Dr. Hendrix . A total of 7 seconds of fluoroscopic time was utilized during the procedure and single spot intrao perative image is acquired. Single image acquired shows needle localization near cervicothoracic mireille ction. IMPRESSION: As Above.
[2018-05-10 12:52] VITALS: BP 118/82; PULSE 70
== END 2018-05-10 13:03 | disposition home or self-care (01) ==
LOC: ORPAIN 09:12
PROVIDERS: ATTEND Specialist
DX: M50.10 Cervical disc disorder with radiculopathy, unspecified cervical region (principal); M79.1 Myalgia; Z91.040 Latex allergy status; Z90.710 Acquired absence of both cervix and uterus
CPT/HCPCS: 20553; 62321; J2250; J1100; J3010; Q9966; 99152

== ENCOUNTER 2018-08-21 10:41 | Emergency (ER) | payer MEDICARE, OTHER ==
[2018-08-21 10:49] VITALS: RESP 18
--- NOTE | 2018-08-21 11:21 | XR ---
EXAMINATION TYPE: XR Hip LT and AP Pelvis , 3 VIEWS DATE OF EXAM ORDERED: 08/21/2018 HISTORY: Chronic left hip pain. COMPARISON: None. FINDINGS: Osseous structures about the pelvis are normal. The left hip has a normal appearance. No f racture, dislocation or significant degenerative change is seen. IMPRESSION: NORMAL PELVIS AND LEFT HIP.
--- NOTE | 2018-08-21 11:23 | ED ---
Lower Extremity Injury HPI - General Chief Complaint: Extremity Injury, Lower Stated Complaint: LEFT HIP LUMP Time Seen by Provider: 08/21/18 10:50 Source: patient, RN notes reviewed Mode of arrival: ambulatory Limitations: no limitations - History of Present Illness Initial Comments: This a 42-year-old female presents emergency Department chief complaint left hip pain. Patient states that she normally has back, neck and hip issues secondary fall several years ago. Patient has chronic pain management injections. Patient states she normally favors her right leg or left leg hurts but states this hurts more than usual. She states that on the lateral portion of her hip denies any new injuries. Patient denies fever, chills, redness to her joint, swelling or leg or any paresthesias. Patient states it feels better and certainly position and was worse with extension of her leg. - Related Data Home Medications Medication Instructions Recorded Confirmed Metoprolol Succinate [Toprol XL] 100 mg PO QAM 04/19/14 05/10/18 Zolpidem [Ambien] 10 mg PO HS 07/19/15 05/10/18 Hydrochlorothiazide 25 mg PO QAM 02/14/16 05/10/18 Gabapentin [Neurontin] 300 mg PO TID PRN 07/02/17 05/10/18 Ibuprofen 800 mg PO TID PRN 07/02/17 05/10/18 Omeprazole 40 mg PO DAILY PRN 07/02/17 05/10/18 Atorvastatin [Lipitor] 40 mg PO HS 03/03/18 05/10/18 Ergocalciferol (Vitamin D2) 50,000 tab PO WEEKLY 03/03/18 05/10/18 [Vitamin D2] Fluticasone Propionate [Flovent 1 puff INHALATION BID PRN 03/03/18 05/10/18 Hfa 110mcg] Magnesium 200 mg PO DAILY 03/03/18 05/10/18 Mirtazapine [Remeron] 7.5 mg PO HS 03/03/18 05/10/18 Potassium Chloride ER [K-Dur 20] 20 meq PO BID 03/03/18 05/10/18 Previous Rx's Medication Instructions Recorded predniSONE 50 mg PO DAILY #5 tab 08/21/18 Allergies Allergy/AdvReac Type Severity Reaction Status Date / Time ketorolac tromethamine Allergy Severe Dyspnea Verified 08/21/18 10:49 [From Toradol] pregabalin [From Lyrica] Allergy Rash/Hives Verified 08/21/18 10:49 varenicline tartrate Allergy Rash/Hives Verified 08/21/18 10:49 [From Chantix] hydromorphone HCl AdvReac Dyspnea Verified 08/21/18 10:49 [From Dilaudid] latex AdvReac Rash/Hives Verified 08/21/18 10:49 Latex, Natural Rubber AdvReac Rash/Hives Verified 08/21/18 10:49 nicotine patch AdvReac Unknown Rash/Hives Uncoded 08/21/18 10:49 Review of Systems ROS Statement: Those systems with pertinent positive or pertinent negative responses have been documented in the HPI. ROS Other: All systems not noted in ROS Statement are negative. Past Medical History Past Medical History: Asthma, Fibromyalgia, GERD/Reflux, Hyperlipidemia, Hypertension, Myocardial Infarction ([place]), Musculoskeletal Disorder, Rheumatoid Arthritis (RA), Skin Disorder Additional Past Medical History / Comment(s): HEART PALPITATIONS-RESOLVED. PSORIASIS HEAD. CHRONIC BACK, NECK PAIN; BOTH ARMS & SHOULDERS ALSO; NT RYLEE ARMS. CTS RYLEE. RA HANDS. Last Myocardial Infarction Date:: 1998 History of Any Multi-Drug Resistant Organisms: None Reported Past Surgical History: Hysterectomy, Orthopedic Surgery, Tonsillectomy Additional Past Surgical History / Comment(s): RT HEEL SURG., EPIDURAL INJECTIONS( BACK AND HIPS); Trigger Fingers both hands. MULT PAIN PROC. CTR LT HAND 3 WKS AGO. Past Anesthesia/Blood Transfusion Reactions: Previous Problems w/ Anesthesia, Motion Sickness Additional Past Anesthesia/Blood Transfusion Reaction / Comment(s): SLOW TO AWAKEN FROM ANESTHESIA YEARS AGO X1. Past Psychological History: Anxiety, Depression, Panic Disorder Smoking Status: Current every day smoker - Past Family History Father Family Medical History: Deep Vein Thrombosis (DVT) Mother Family Medical History: Deep Vein Thrombosis (DVT) General Exam Limitations: no limitations General appearance: alert, in no apparent distress Respiratory exam: Present: normal lung sounds bilaterally. Absent: respiratory distress, wheezes, rales, rhonchi, stridor Cardiovascular Exam: Present: regular rate, normal rhythm, normal heart sounds. Absent: systolic murmur, diastolic murmur, rubs, gallop, clicks Extremities exam: Present: other (Tenderness over the lateral portion of the left hip region by the greater trochanteric region patient has pain with range of motion with external rotation and full extension. Leg is neurovascular intact there is no erythema no increased warmth) Neurological exam: Present: reflexes normal. Absent: motor sensory deficit Skin exam: Present: warm, dry, intact, normal color. Absent: rash Course Vital Signs 08/21/18 10:46 Temperature 98 F Pulse Rate 64 Respiratory 18 Rate Blood Pressure 116/81 O2 Sat by Pulse 99 Oximetry Medical Decision Making - Medical Decision Making 42-year-old female sent emergency department for left hip pain. Patient has chronic pain issues she is out of her pain medication. Patient has left hip bursitis will be given an injection of pain meds now, steroids and was discharged on steroids. Return parameters were discussed. Disposition Clinical Impression: Hip bursitis, left Disposition: HOME SELF-CARE Condition: Stable Instructions: Hip Bursitis (ED) Additional Instructions: Please return to the Emergency Department if symptoms worsen or any other concerns. Prescriptions: predniSONE 50 mg PO DAILY #5 tab Is patient prescribed a controlled substance at d/c from ED?: No Referrals: Sushma Vega MD [Primary Care Provider] - 1-2 days Time of Disposition: 11:47
[2018-08-21] MEDS ORDERED: methylPREDNISolone SOD SUCCI 125 MG/2 ML VIAL IM ONE (11:48)
[2018-08-21] MEDS ORDERED: MORPHINE SULFATE 4 MG/ML SYRINGE IM STA (11:48)
[2018-08-21] MEDS ORDERED: HYDROcodone/APAP 10-325MG 1 EACH TAB PO ONE (11:50)
[2018-08-21] MEDS ORDERED: predniSONE 20 MG TAB PO STA (11:50)
[2018-08-21 12:01] VITALS: BP 117/66; PULSE 71; TEMP 97.5
== END 2018-08-21 12:04 | disposition home or self-care (01) ==
LOC: EC 10:41
DX: M70.72 Other bursitis of hip, left hip (principal); J45.909 Unspecified asthma, uncomplicated; E78.5 Hyperlipidemia, unspecified; I10 Essential (primary) hypertension; M79.7 Fibromyalgia; I25.2 Old myocardial infarction; G89.29 Other chronic pain; F32.9 Major depressive disorder, single episode, unspecified; F41.9 Anxiety disorder, unspecified; F17.200 Nicotine dependence, unspecified, uncomplicated; Z88.5 Allergy status to narcotic agent; Z88.6 Allergy status to analgesic agent; Z88.8 Allergy status to other drugs, medicaments and biological substances; Z91.040 Latex allergy status; Z79.899 Other long term (current) drug therapy
CPT/HCPCS: 73502; 99283; J7512

== ENCOUNTER 2018-12-09 01:29 | Emergency (ER) | payer MEDICARE, OTHER ==
[2018-12-09] MEDS ORDERED: IPRATROPIUM-ALBUTEROL 3 ML NEB INHALATION STA (01:47)
--- NOTE | 2018-12-09 01:51 | ED ---
URI HPI - General Chief Complaint: Upper Respiratory Infection Stated Complaint: Asthma Attack Time Seen by Provider: 12/09/18 01:41 Source: patient, RN notes reviewed Mode of arrival: ambulatory Limitations: no limitations - History of Present Illness Initial Comments: 42-year-old female presents emergency department chief complaint of cough congestion. Patient states symptoms started on Wednesday with sinus congestion. She notes over the last day or so she's had increased shortness of breath with her asthma. She is a daily smoker. Patient states that she is using her inhaler at home with some relief. Last use was 3 hours ago. Patient denies any chest pain. Patient states she's felt febrile home, achy. Patient denies any sick contacts. No [id number] medications use. - Related Data Home Medications Medication Instructions Recorded Confirmed Metoprolol Succinate [Toprol XL] 100 mg PO QAM 04/19/14 05/10/18 Zolpidem [Ambien] 10 mg PO HS 07/19/15 05/10/18 Hydrochlorothiazide 25 mg PO QAM 02/14/16 05/10/18 Gabapentin [Neurontin] 300 mg PO TID PRN 07/02/17 05/10/18 Ibuprofen 800 mg PO TID PRN 07/02/17 05/10/18 Omeprazole 40 mg PO DAILY PRN 07/02/17 05/10/18 Atorvastatin [Lipitor] 40 mg PO HS 03/03/18 05/10/18 Ergocalciferol (Vitamin D2) 50,000 tab PO WEEKLY 03/03/18 05/10/18 [Vitamin D2] Fluticasone Propionate [Flovent 1 puff INHALATION BID PRN 03/03/18 05/10/18 Hfa 110mcg] Magnesium 200 mg PO DAILY 03/03/18 05/10/18 Mirtazapine [Remeron] 7.5 mg PO HS 03/03/18 05/10/18 Potassium Chloride ER [K-Dur 20] 20 meq PO BID 03/03/18 05/10/18 Previous Rx's Medication Instructions Recorded predniSONE 50 mg PO DAILY #5 tab 08/21/18 Albuterol Nebulized [Ventolin 2.5 mg INHALATION Q4H PRN #25 nebu 12/09/18 Nebulized] Albuterol Sulfate [Proair Hfa] 1 - 2 puff INHALATION Q4HR PRN #1 12/09/18 inhaler predniSONE 50 mg PO DAILY #4 tab 12/09/18 Allergies Allergy/AdvReac Type Severity Reaction Status Date / Time ketorolac tromethamine Allergy Severe Dyspnea Verified 12/09/18 01:39 [From Toradol] pregabalin [From Lyrica] Allergy Rash/Hives Verified 12/09/18 01:39 varenicline tartrate Allergy Rash/Hives Verified 12/09/18 01:39 [From Chantix] hydromorphone HCl AdvReac Dyspnea Verified 12/09/18 01:39 [From Dilaudid] latex AdvReac Rash/Hives Verified 12/09/18 01:39 Latex, Natural Rubber AdvReac Rash/Hives Verified 12/09/18 01:39 nicotine patch AdvReac Unknown Rash/Hives Uncoded 12/09/18 01:39 Review of Systems ROS Statement: Those systems with pertinent positive or pertinent negative responses have been documented in the HPI. ROS Other: All systems not noted in ROS Statement are negative. Past Medical History Past Medical History: Asthma, Fibromyalgia, GERD/Reflux, Hyperlipidemia, Hypertension, Myocardial Infarction ([place]), Musculoskeletal Disorder, Rheumatoid Arthritis (RA), Skin Disorder Additional Past Medical History / Comment(s): HEART PALPITATIONS-RESOLVED. PSORIASIS HEAD. CHRONIC BACK, NECK PAIN; BOTH ARMS & SHOULDERS ALSO; NT RYLEE ARMS. CTS RYLEE. RA HANDS. ( liver findings) Last Myocardial Infarction Date:: 1998 History of Any Multi-Drug Resistant Organisms: None Reported Past Surgical History: Bladder Surgery, Hysterectomy, Orthopedic Surgery, Tonsillectomy Additional Past Surgical History / Comment(s): RT HEEL SURG., EPIDURAL INJECTIONS( BACK AND HIPS); Trigger Fingers both handsX3. MULT PAIN PROC. CTR LT HAND X2 Past Anesthesia/Blood Transfusion Reactions: Previous Problems w/ Anesthesia, Motion Sickness Additional Past Anesthesia/Blood Transfusion Reaction / Comment(s): SLOW TO AWAKEN FROM ANESTHESIA YEARS AGO X1. Past Psychological History: Anxiety, Depression, Panic Disorder Smoking Status: Current every day smoker Past Alcohol Use History: Rare Past Drug Use History: None Reported - Past Family History Father Family Medical History: Deep Vein Thrombosis (DVT) Mother Family Medical History: Deep Vein Thrombosis (DVT) General Exam Limitations: no limitations General appearance: alert, in no apparent distress Head exam: Present: atraumatic, normocephalic, normal inspection Eye exam: Present: normal appearance, PERRL, EOMI. Absent: scleral icterus, conjunctival injection, periorbital swelling ENT exam: Present: normal exam, normal oropharynx, mucous membranes moist, TM's normal bilaterally Neck exam: Present: normal inspection, full ROM. Absent: tenderness, meningismus, lymphadenopathy Respiratory exam: Present: respiratory distress (Mild), wheezes (Bilateral throughout). Absent: normal lung sounds bilaterally, rales, rhonchi, stridor Cardiovascular Exam: Present: normal rhythm, tachycardia, normal heart sounds. Absent: systolic murmur, diastolic murmur, rubs, gallop, clicks Neurological exam: Present: alert, oriented X3, CN II-XII intact Skin exam: Present: warm, dry, intact, normal color. Absent: rash Course Vital Signs 12/09/18 12/09/18 12/09/18 01:33 02:07 02:18 Temperature 99 F Pulse Rate 99 100 104 H Respiratory 18 Rate Blood Pressure 114/76 O2 Sat by Pulse 96 Oximetry Medical Decision Making - Medical Decision Making 42-year-old female presents emergency from for cough congestion shortness breath. Patient is improved after DuoNeb treatment. Patient has a mild asthma exacerbation related to upper respiratory infection. There is no clinical evidence of bacterial infection. Patient will be given oral steroids, discharged and oral steroids. Patient does not have current rescue inhaler or albuterol for her nebulizer. She'll be discharged with pro-air inhaler and albuterol solution. Patient will follow-up with PCP and return for any worsening symptoms. - Lab Data Lab Results 12/09/18 Range/Units 02:00 Influenza Type A RNA Not Detected (Not Detectd) Influenza Type B (PCR) Not Detected (Not Detectd) Disposition Clinical Impression: Upper respiratory infection, Asthma exacerbation Disposition: HOME SELF-CARE Condition: Stable Instructions (If sedation given, give patient instructions): Upper Respiratory Infection (ED), Asthma (ED) Additional Instructions: Please return to the Emergency Department if symptoms worsen or any other concerns. Prescriptions: Albuterol Nebulized [Ventolin Nebulized] 2.5 mg INHALATION Q4H PRN #25 nebu PRN Reason: difficulty in breathing Albuterol Sulfate [Proair Hfa] 1 - 2 puff INHALATION Q4HR PRN #1 inhaler PRN Reason: difficulty in breathing predniSONE 50 mg PO DAILY #4 tab Is patient prescribed a controlled substance at d/c from ED?: No Referrals: Sushma Vega MD [Primary Care Provider] - 1-2 days Time of Disposition: 02:52
--- NOTE | 2018-12-09 02:25 | XR ---
EXAM: XR Chest, 2 Views CLINICAL HISTORY: Cough/pain TECHNIQUE: Frontal and lateral views of the chest. COMPARISON: 01/13/2011; 10/06/2017 FINDINGS: Lungs: Unremarkable. No consolidation. Pleural space: No pleural effusion. No pneumothorax. Heart: Unremarkable. No cardiomegaly. Mediastinum: Unremarkable. Bones/joints: Unremarkable. IMPRESSION: No focal consolidation or definite acute cardiopulmonary process identified.
[2018-12-09] MEDS ORDERED: predniSONE 20 MG TAB PO STA (02:50)
[2018-12-09 03:09] VITALS: BP 114/67; PULSE 94; RESP 20; TEMP 98.6
== END 2018-12-09 02:58 | disposition home or self-care (01) ==
LOC: EC 01:29
DX: J45.901 Unspecified asthma with (acute) exacerbation (principal); J06.9 Acute upper respiratory infection, unspecified; M79.7 Fibromyalgia; K21.9 Gastro-esophageal reflux disease without esophagitis; E78.5 Hyperlipidemia, unspecified; I10 Essential (primary) hypertension; I25.2 Old myocardial infarction; F32.9 Major depressive disorder, single episode, unspecified; F17.200 Nicotine dependence, unspecified, uncomplicated; Z79.51 Long term (current) use of inhaled steroids; Z79.899 Other long term (current) drug therapy; Z88.6 Allergy status to analgesic agent; Z88.5 Allergy status to narcotic agent; Z88.8 Allergy status to other drugs, medicaments and biological substances; Z91.040 Latex allergy status; Z91.048 Other nonmedicinal substance allergy status
CPT/HCPCS: 94640; 87502; 71046; 99284; J7512

== ENCOUNTER → 2019-03-16 | Outpatient (CLI) | payer MEDICARE, OTHER ==
--- NOTE | 2019-03-16 11:49 | CT ---
EXAMINATION TYPE: CT abdomen pelvis wo con DATE OF EXAM: 03/16/2019 COMPARISON: None HISTORY: 43-year-old female Unspecified abdominal pain CT DLP: 230.70 mGycm. Automated exposure control for dose reduction was used. TECHNIQUE: Contiguous axial scanning of the abdomen and pelvis without IV contrast. Coronal and sagit edda reconstructions performed. FINDINGS: Heart normal size without pericardial effusion. Lung bases clear without pleural effusion. 2.1 cm central right hepatic cyst. Otherwise, noncontrast appearance of the liver, gallbladder, adren al glands, kidneys, spleen, and pancreas show no gross abnormality. No dilated small bowel, free fluid, or free air. Normal appendix. Scattered mild stool there are no pericolonic inflammatory change. No mesenteric or retroperitoneal lymphadenopathy. Bladder urine distended. Uterus surgically absent. Some low-lying small bowel loops in the cul-de-sac . Right ovary is visualized with the 1.9 cm dominant follicle or functional cyst. Left ovary not bijan rly seen. No pelvic lymphadenopathy or abnormal fluid collection in the pelvis seen. Bones: Moderate to advanced degenerative disc disease L5-S1. IMPRESSION: 1. No acute inflammatory process identified in the abdomen or pelvis to explain patient's symptoms. 2. Status post hysterectomy. Left ovary could not be identified. Right ovary demonstrates a 1.9 cm d ominant follicle or functional cyst. 3. Moderate to advanced degenerative disc disease at L5-S1.
== END ==
LOC: RADCTMAIN 10:54
PROVIDERS: ATTEND Family Medicine
DX: R10.9 Unspecified abdominal pain (principal); Z90.710 Acquired absence of both cervix and uterus; Z88.8 Allergy status to other drugs, medicaments and biological substances; Z88.4 Allergy status to anesthetic agent
CPT/HCPCS: 74176

== ENCOUNTER → 2019-05-17 | Outpatient (CLI) | payer MEDICARE, OTHER ==
[2019-05-17 12:16] VITALS: BP 121/82; PULSE 70; RESP 18
--- NOTE | 2019-05-17 13:00 | P.PAINPG ---
Subjective Progress Note Date: 05/17/19 This is follow-up visit for this patient with a history of severe and chronic low back pain secondary to lumbar degenerative disc disease, lumbar facet arthropathy, and also she had been diagnosed with cervical radiculopathy We have done an interventional pain procedure status post radiofrequency ablation of the medial branch lumbar area L3 4/L4 5/L5-S1 which was done in April 2018, she reported that her low back pain improved significantly, particularly recently she started having severe low back pain with radiation to the posterior aspect of her lower extremities, Patient denies any motor or sensory deficit, denies any change in the bowel movement or urination, patient denies any fever or night sweats. She continued to use [place] 10/325 every 6 hours when necessary and she is getting prescription refills from her primary care Physical Examinations : -Constitutiona : Cooperative , not in acute distress . -HEENT : nech : supple , no Lymphadenopathy , normal th yroid size . eyes : no ptosis , no icterus, no photophobia . ENT : normal of hearing , normal oropharynx , no Thrush . - Respiratory : Chest clear to auscultations Bilaterally , no wheezing , no Rhonchi . - Cardiovascula : regular rate and rhythem , S1 , S2 , no S3 , no S4. - Gastrointestina : abdomen soft no tenderness , bowel sounds , no organomegally . - Genitourinary : Defferred . - neurologic : Cranial nerve II to XII intact , no focal neurological deffecit . -psychatric : alert , oriented X 3 , appropriate affect , intact judgment and insight . -Lymphatic : no Lymphadenopathy . - musculoskeltal : Cervical Spine motor stregnth in the deltoid and biceps, normal right side , normal Left side motor stregnth biceps and the wrist extensors normal right side ,normal left side . motor stregnth in the triceps muscle . normal Right side , normal Left side deep tendon reflexes normal at the biceps , normal at Brachioradialis , normal at triceps Lumber spine moter stegnth lower extremities ,thigh and legs 5/5 Right side , 5/5 Left side deep tendon reflexes : normal Knee Jerk , normal ankle Jerk positive lumber facet Loading Test Range of motion of the lumbar spine Flexion 30 degrees, extension 10 degrees strait leg raising test , positive at 45 degree Fabere test positive RT and positive LT . Sever tenderness over the Sacroiliac joint on the R and L sides [place] test positive bilaterally. Seated flexion test positive bilaterally. Assessment and Plan Plan: Assessment and plan=1-chronic severe low back pain secondary to lumbar spondylosis Patient could benefit from repeat radiofrequency ablation of the medial branch lumbar area L34,L45 ,L5-S1 Right-sided first, and left side later on 2-cervical radiculopathy, cervical degenerative disc disease Pain improved after cervical epidural steroid injection ,done last year Objective - Vital Signs Vital signs: Vital Signs Temp Pulse 70 05/17/19 12:05 Resp 18 05/17/19 12:05 BP 121/82 05/17/19 12:05 Pulse Ox 97 05/17/19 12:05 Intake & Output 05/16/19 05/17/19 05/17/19 18:59 06:59 18:59 Weight 54.431 kg PQRS Measure Charge Sheet Measure #130: Documentation of Current Meds in Medical Chart: Patient's medications documented in chart Measure #226: Tobacco Use: Screen & Cessation Intervention: Pt screened for tobacco use AND intervention given Measure #111: Pneumonia Vaccination: Pneumococcal vaccine NOT administered or previously given Measure #47: Advance Care Plan: Advance care planning discussed & documented, pt chose/unable to give Measure #412: Opioid Treatment Agreement: No documentation of signed opioid treatment agreement Measure #408: Opioid Therapy Follow-up Evaluation: Patient had NO f/u eval minimum every 3 months during opioid therapy Measure #317: Preventitive Care & Scrn High Bld Press & F/U: Normal blood pressure, f/u not required Measure #128: Body Mass Index (BMI) Screening & Follow-up: BMI documented within normal parameters Measure #131: Pain Assessment & Follow-up: Pain positive & plan documented, Follow-up scheduled Measure #431: Unhealthy Alcohol Use Preventative Care & Scrn: Patient not identified as an unhealthy alcohol user PQRS Narrative: Smoking Status Current every day smoker Narcotic Agreement Date Signed 02/12/14 Blood Pressure 121/82 Pain Intensity [Neck] 9 Pain Intensity [Bilateral 7 Lower Back] Scale Used Numeric (1 - 10) Hx Alcohol Use (MH) Yes Home Medications: Ambulatory Orders Metoprolol Succinate [Toprol XL] 100 mg PO QAM 04/19/14 Hydrochlorothiazide 25 mg PO QAM 02/14/16 Atorvastatin [Lipitor] 80 mg PO HS 03/03/18 Fluticasone Propionate [Flovent Hfa 110mcg] 1 puff INHALATION BID PRN 03/03/18 Mirtazapine [Remeron] 8 mg PO HS 03/03/18 Albuterol Nebulized [Ventolin Nebulized] 2.5 mg INHALATION Q4H PRN #25 nebu 12/09/18 Albuterol Sulfate [Proair Hfa] 1 - 2 puff INHALATION Q4HR PRN #1 inhaler 12/09/18 Hydrocodone/Acetaminophen [[place] 10-325] 1 tab PO BID 05/17/19 Controlled Substance Measures - Controlled Substance Measures Is patient prescribed a controlled substance at discharge?: No
== END | disposition home or self-care (01) ==
LOC: PNWHC3 11:34
PROVIDERS: ATTEND Specialist
DX: G89.29 Other chronic pain (principal); M50.10 Cervical disc disorder with radiculopathy, unspecified cervical region; M47.816 Spondylosis without myelopathy or radiculopathy, lumbar region; F17.200 Nicotine dependence, unspecified, uncomplicated; Z98.890 Other specified postprocedural states; Z79.891 Long term (current) use of opiate analgesic; Z79.899 Other long term (current) drug therapy
CPT/HCPCS: 99211

== ENCOUNTER 2019-05-31 08:19 | Day surgery (SDC) | payer MEDICARE, OTHER ==
[2019-05-26 10:17] VITALS: BMI 20.5
[2019-05-31 09:00] VITALS: TEMP 97.8
[2019-05-31] MEDS ORDERED: LACTATED RINGERS 1,000 ML IV ONE (09:05)
[2019-05-31] MEDS ORDERED: LIDOCAINE 1% 20 ML VIAL (10MG/ML) FOR IV START INTRADERMA ONE (09:05)
[2019-05-31] MEDS ORDERED: IV FLUID CONTINUATION 1,000 ML IV ONE ×2 (10:15)
[2019-05-31 10:19] VITALS: RESP 16
--- NOTE | 2019-05-31 10:19 | P.PCN ---
Date of Procedure: 05/31/19 Procedure(s) Performed: PREOPERATIVE DIAGNOSIS: Lumbar Spondylosis POSTOPERATIVE DIAGNOSIS: Same PROCEDURES: Radiofrequency ablation of the L3, L4, L5 medial branches with fluoroscopic guidance (for facet joints L4-5 and L5-S1) on the right side SURGEON: Eliceo Mitchell MD. ANESTHESIA: Lidocaine 1% 5 mL, Moderate sedation with intravenous Versed and fentanyl EBL: Minimal Fluoroscopy was used for the procedure and images were saved in the radiology portion of the chart. PROCEDURE INDICATION: The patient with low back pain secondary to lumbar facet arthropathy who had more than 50% relief of pain with previous diagnostic lumbar medial branch block X2. PROCEDURE DESCRIPTION / TECHNIQUE: The patient was seen and identified in the preoperative area. Risks, benefits, complications, including but not limited to risk of infection ,bleeding , allergic reactions to the medications and incompl ete pain relief , and alternatives were discussed with the patient, the patient agreed to proceed with the procedure and signed the consent. IV was started. The operative site was marked. Patient was taken to the OR and time out was completed. The patient was placed in the prone position on the procedure table. The lumbar area was prepped and draped in the usual sterile fashion. . Vital signs were closely monitored during the procedure .IV sedation was used during the procedure to decrease patients anxiety. Using AP and then oblique fluoroscopy, the "eye of the Carlo dog" corresponding to the connection between the superior and transverse articular processes of the L4 and L5 as well as the sacral ala were identified, marked, and localized with 1% lidocaine. Subsequently, an 18 guage 100 mm radiofrequency cannula with a 10-mm active tip was advanced guided by fluoroscopy to the identified target at each site. Needle positioning was confirmed on AP, oblique and lateral fluoroscopy. Motor testing at 2.5 Hz was done with paraspinal muscle stimulation only, and no radicular symptoms down the legs. Then 1 mL of 4% lidocaine was injected in each site. Radiofrequency thermocoagulation at 80 degrees celsius for 90 seconds was then performed. [place] were removed. Sterile dressings were applied. COMPLICATIONS: No acute complications. DISPOSITION / PLANS: The patient was placed in a supine position and transferred to the recovery area in a stable condition for observation and was discharged from the recovery room after meeting discharge criteria. Home discharge instructions given to the patient by the staff. The patient will follow up in clinic in 4 weeks.
--- NOTE | 2019-05-31 10:22 | FL ---
EXAMINATION TYPE: FL guided pain mgmt statistic DATE OF EXAM: 05/31/2019 CLINICAL HISTORY: Low back pain. TECHNIQUE: Fluoroscopy. COMPARISON: None. FINDINGS: Fluoroscopic guidance was provided during pain relief procedure performed by Dr. Mitchell. A t otal of 6 seconds of fluoroscopic time was utilized during the procedure and 6 spot images are acquir ed. Images acquired shows needle localization localization of the lumbosacral junction and multilevel localization of the lumbar spine. IMPRESSION: As Above.
[2019-05-31 10:54] VITALS: BP 100/58; PULSE 66
== END 2019-05-31 10:55 | disposition home or self-care (01) ==
LOC: ORPAIN 08:19
PROVIDERS: ATTEND Anesthesiology
DX: M47.816 Spondylosis without myelopathy or radiculopathy, lumbar region (principal); M47.817 Spondylosis without myelopathy or radiculopathy, lumbosacral region; F17.200 Nicotine dependence, unspecified, uncomplicated; Z79.899 Other long term (current) drug therapy
CPT/HCPCS: 64635; 64636; J2250; J3010; 99152

== ENCOUNTER 2019-06-14 07:33 | Day surgery (SDC) | payer MEDICARE, OTHER ==
[2019-06-09 09:14] VITALS: BMI 22.3
[2019-06-14 08:07] VITALS: RESP 16; TEMP 97.2
[2019-06-14] MEDS ORDERED: LIDOCAINE 1% 20 ML VIAL (10MG/ML) FOR IV START INTRADERMA ONE (08:12)
--- NOTE | 2019-06-14 09:05 | P.PCN ---
Date of Procedure: 06/14/19 Procedure(s) Performed: OPERATION: Radiofrequency ablation of the medial branch lumbar area at left side, L3 medial branch, L4 medial branch, and dorsal rami of 5 levels under fluoroscopic guidance. PREOPERATIVE DIAGNOSES: 1. Lumbar facet arthropathy. 2. Lumbar degenerative disc disease. POSTOPERATIVE DIAGNOSES: 1. Lumbar facet arthropathy. 2. Lumbar degenerative disc disease. COMPLICATIONS: None. PHYSICIAN: Alcides Briseno MD ANESTHESIA: moderate sedation with local infiltration. CONDITION: Stable. INDICATION FOR THE PROCEDURE: This is 43-year-old female with a history of low back pain. Procedure, risks and benefits discussed with the patient who agreed with proceeding. Patient taken to the operating room, placed in prone position. All standard monitors applied to the patient. Then after induction of anesthesia, back prepped with Betadine 3 times. Then under fluoroscopic guidance we used 1% lidocaine 5 mL for skin and subcutaneous tissue infiltrations, Then after that, 18-gauge radiofrequency active-tip needles, 3 needles used, each one of them placed at the junction of the base of the transverse process and the superior articulating process of the left side at, L3-4, L4-5 and L5-S1 levels. Needle placement confirmed with AP and oblique and lateral views. Then after appropriate needle placement confirmed, we checked for the motor stimulation at 2.5 v, which was positive for localized contractions in the lumbar area and there were no contractions in the lower extremities. Then 1 cc of 4% lidocaine was injected into each needle. Then after that, the radiofrequency done at 80 degrees Centigrade for 90 seconds at each level. The needles were subsequently removed. Patient tolerated the procedure well without any complication and will follow up with the pain clinic in few weeks.
[2019-06-14] MEDS ORDERED: IV FLUID CONTINUATION 400 ML IV ONE (09:09)
[2019-06-14 09:23] VITALS: BP 102/68; PULSE 64
--- NOTE | 2019-06-14 10:00 | FL ---
EXAMINATION TYPE: FL guided pain mgmt statistic DATE OF EXAM: 06/14/2019 CLINICAL HISTORY: Low back pain. TECHNIQUE: Fluoroscopy. COMPARISON: None. FINDINGS: Fluoroscopic guidance was provided during pain relief procedure performed by Dr. Briseno . A total of 7 seconds of fluoroscopic time was utilized during the procedure and two spot images are acquired. Images acquired shows needle localization of the lumbar spine multiple levels. IMPRESSION: As Above.
== END 2019-06-14 09:39 | disposition home or self-care (01) ==
LOC: ORPAIN 07:33
PROVIDERS: ATTEND Student in an Organized Health Care Education/Training Program
DX: G89.29 Other chronic pain (principal); M51.16 Intervertebral disc disorders with radiculopathy, lumbar region; M46.96 Unspecified inflammatory spondylopathy, lumbar region; F17.200 Nicotine dependence, unspecified, uncomplicated; Z79.891 Long term (current) use of opiate analgesic; Z79.51 Long term (current) use of inhaled steroids; Z79.899 Other long term (current) drug therapy; Z90.710 Acquired absence of both cervix and uterus
CPT/HCPCS: 64635; 64636 ×2; J2250; J3010; 99152

== ENCOUNTER → 2019-07-06 | Outpatient (CLI) | payer MEDICARE, OTHER ==
[2019-07-06 13:46] VITALS: BP 125/58; PULSE 54; RESP 16
--- NOTE | 2019-07-09 18:05 | P.PAINPG ---
Subjective Progress Note Date: 07/06/19 This is follow-up visit for this patient with a history of severe and chronic low back pain secondary to lumbar degenerative disc disease, lumbar facet arthropathy, and also she had been diagnosed with cervical radiculopathy which has responded well to cervical epidural steroid injections in the past. Recently, we have done radiofrequency ablation of the L3,L4,L5 medial branches, and patient reports 95% reduction in her pain scores. Today, her primary complaint is neck pain which radiates to the upper thoracic region, left shoulder region, arm and forearm; circumferentially- to just above wrist. Pain is intermittent, stabbing, burning, aching. She reports numbness in this distri bution.She denies any aggravating factors. Relieving factors include norco (prescribed by PCP) and heat. She also reports dropping objects in b/l extremities with numbness and tinging in thumb, indrx and ring finger. She underwent carpal tunnel surgery bilaterally in April and 2017; however this has not resolved. Patient denies any motor or sensory deficit, denies any change in the bowel movement or urination, patient denies any fever or night sweats. She continued to use [place] 10/325 every 6 hours when necessary and she is getting prescription refills from her primary care Review of systems is negative for chest pain, shortness of breath, new onset weakness, numbness/tingling, abdominal pain, malaise, fever, chills, homicidal or suicidal ideation, or bowel or bladder incontinence. She does endorse night sweats. Physical Exam Vitals: Reviewed in EMR GENERAL: Well appearing, in no acute distress PSYCH: Mood and affect is appropriate. Awake, alert, and oriented SKIN: Skin color, texture, turgor normal, no rashes or lesions HEENT: Normocephalic, atraumatic. EOM intact CV: No pedal edema RESP: Respirations are unlabored, no audible wheezing GI: Abdomen non-distended MUSCULOSKELETAL: Bilateral upper and lower extremity strength is normal and symmetric. No atrophy or tone abnormalities are noted. Cervical spine: TTP along cervical paraspinals bilaterally. Negative Spurling's sign. Extremities: Peripheral joint ROM is full and pain free without obvious instability or laxity in upper extremities. Strength is 5/5 in b/l upper extremities. No edema or skin discolorations noted. Gait: Gait is normal NEUR: Bilateral upper extremity coordination and muscle stretch reflexes are physiologic and symmetric. Negative Perez's sign. No loss of sensation is noted. Plan: Assessment and plan=1-chronic severe low back pain secondary to lumbar spondylosis which has responded well to recent lumbar RFA. Encouraged continued HEP. 2-cervical radicular pain/ radiculitis, cervical degenerative disc disease Pain improved after cervical epidural steroid injection ,done last year. Patient will likely benefit from repeat cervical epidural steroid injection. Will schedule left paramedian C7-T1 [place]. Encouraged patient to stop smoking. Objective - Vital Signs Vital signs: Vital Signs Temp Pulse 54 L 07/06/19 13:30 Resp 16 07/06/19 13:30 BP 125/58 07/06/19 13:30 Pulse Ox PQRS Measure Charge Sheet Measure #226: Tobacco Use: Screen & Cessation Intervention: Pt screened for tobacco use AND intervention given Measure #317: Preventitive Care & Scrn High Bld Press & F/U: Normal blood pressure, f/u not required Measure #128: Body Mass Index (BMI) Screening & Follow-up: BMI documented within normal parameters Measure #131: Pain Assessment & Follow-up: Pain positive & plan documented PQRS Narrative: Smoking Status Current every day smoker Narcotic Agreement Date Signed 02/12/14 Blood Pressure 125/58 Pain Intensity [Bilateral 7 Posterior Neck] Scale Used Numeric (1 - 10) Hx Alcohol Use (MH) Yes Home Medications: Ambulatory Orders Metoprolol Succinate [Toprol XL] 100 mg PO QAM 04/19/14 Hydrochlorothiazide 25 mg PO QAM 02/14/16 Atorvastatin [Lipitor] 80 mg PO HS 03/03/18 Fluticasone Propionate [Flovent Hfa 110mcg] 1 puff INHALATION BID PRN 03/03/18 Mirtazapine [Remeron] 8 mg PO HS 03/03/18 Albuterol Nebulized [Ventolin Nebulized] 2.5 mg INHALATION Q4H PRN #25 nebu 12/09/18 Albuterol Sulfate [Proair Hfa] 1 - 2 puff INHALATION Q4HR PRN #1 inhaler 12/09/18 Controlled Substance Measures - Controlled Substance Measures Is patient prescribed a controlled substance at discharge?: No
== END | disposition home or self-care (01) ==
LOC: PNWHC3 12:28
PROVIDERS: ATTEND Anesthesiology
DX: M50.10 Cervical disc disorder with radiculopathy, unspecified cervical region (principal); M47.816 Spondylosis without myelopathy or radiculopathy, lumbar region; G89.29 Other chronic pain; F17.200 Nicotine dependence, unspecified, uncomplicated; Z79.899 Other long term (current) drug therapy
CPT/HCPCS: 99211

== ENCOUNTER 2019-07-17 06:09 | Day surgery (SDC) | payer MEDICARE, OTHER ==
[2019-07-12 09:37] VITALS: BMI 22.3
[2019-07-17 06:27] VITALS: RESP 16; TEMP 97.3
[2019-07-17] MEDS ORDERED: LIDOCAINE 1% 20 ML VIAL (10MG/ML) FOR IV START INTRADERMA ONE (06:36)
--- NOTE | 2019-07-17 08:01 | P.PCN ---
Date of Procedure: 07/17/19 Procedure(s) Performed: . PROCEDURE 1. Cervical epidural steroid injection under fluoroscopic guidance, C7-T1 (fluoroscopy images available in the radiology department ) 2. Cervical epidurogram. PREOPERATIVE DIAGNOSIS: 1- Cervical Degenerative Disc Diseases 2- Cervical radiculopathy. POSTOPERATIVE DIAGNOSIS: : 1- Cervical Degenerative Disc Diseases , 2- Cervical radiculopathy. ANESTHESIA: Local anesthesia with lidocaine 1 % , and moderate sedation, with Versed 4 mg and Fentanyl 100 mcg. EBL 0 PROCEDURE INDICATION: The patient with neck pain and radiculitis unresponsive to conservative treatment consents for procedure. PROCEDURE DESCRIPTION / TECHNIQUE: The patient was seen and identified in the preoperative area. Risks, benefits, complications, including but not limited to infections ,bleeding , allergic reactions to the medications ,and not complete pain releife, and alternatives were discussed with the patient, the patient agreed to proceed with the procedure and signed the consent. Patient was taken to the OR and time out was completed. The patient was placed in the prone position on the procedure table. A pillow was placed under the patients chest to increase the cervical interlaminar space. The cervical area was prepped and draped in the usual sterile fashion. V ital signs were closely monitored during the procedure. Conscious sedation was used during the procedure to decrease patients anxiety. Using anterior-posterior fluoroscopy, the C7-T1 interlaminar space was identified and the skin over this site was marked and then infiltrated with 1% lidocaine subcutaneously. Subsequently, a 20-gauge 3-1/2-inch Tuohy epidural needle was inserted and advanced toward the epidural space by means of the ``hanging-drop technique and guided by AP and lateral fluoroscopy. The correct needle position in the epidural space was verified with the injection of 2 mL o f the water soluble contrast dye Isovue-200 and observing an excellent epidurogram with the epidural spread of the dye, after negative aspiration for blood and CSF and in the absence of paresthesias. Again after negative aspiration, mixture containing 20 mg Dexamethasone and 2 ml of preservative- free normal saline injected and a washout of epidurogram was seen. Needle was withdrawn intact, skin was cleansed, and bandages were applied. Complications= none. Disposition= patient was placed in supine position and transferred to the recovery room area in stable condition and there was no evidence of upper or lower extremity motor or sensory deficit after the procedure patient was discharged from recovery room after discharge criteria met and home discharge instructions was given by the staff and patient will follow with the pain clinic in 2-4 weeks
[2019-07-17 08:21] VITALS: BP 107/73; PULSE 71
[2019-07-17] MEDS ORDERED: IV FLUID CONTINUATION 1,000 ML IV ONE (08:26)
--- NOTE | 2019-07-17 09:07 | FL ---
EXAMINATION TYPE: FL guided pain mgmt statistic DATE OF EXAM: 07/17/2019 FLUOROSCOPY Fluoroscopy time of 4 seconds was used during a cervical epidural injection. 2 image/s document/s th e procedure.
== END 2019-07-17 08:31 | disposition home or self-care (01) ==
LOC: ORPAIN 06:09
PROVIDERS: ATTEND Specialist
DX: M50.10 Cervical disc disorder with radiculopathy, unspecified cervical region (principal); M47.9 Spondylosis, unspecified; Z88.5 Allergy status to narcotic agent; Z88.8 Allergy status to other drugs, medicaments and biological substances; Z88.6 Allergy status to analgesic agent; Z91.040 Latex allergy status
CPT/HCPCS: 62321; J2250; J1100; J3010; Q9966

== ENCOUNTER 2019-07-31 06:52 | Day surgery (SDC) | payer MEDICARE, OTHER ==
[2019-07-27 13:01] VITALS: BMI 22.3
[2019-07-31 07:26] VITALS: BP 112/66; PULSE 58; RESP 16; TEMP 97.3
[2019-07-31] MEDS ORDERED: LIDOCAINE 1% 20 ML VIAL (10MG/ML) FOR IV START INTRADERMA ONE (07:32)
--- NOTE | 2019-07-31 10:13 | P.PN ---
Progress Note - Text Progress Note Date: 07/31/19 Patient was scheduled to have cervical epidural steroid injection today. I evaluated her and preop, and she states that since her last cervical epidural steroid injections, her neck pain and shoulder pain has completely resolved. She is complaining of thoracic pain, radiating to left thoracic region, which is new. We have not evaluated her for this pain before. I canceled her procedure today, as it was not indicated due to lack of pain in the cervical region. I ordered a a thoracic MRI and we will follow-up with the patient after MRI is performed.
== END 2019-07-31 07:54 | disposition home or self-care (01) ==
LOC: ORPAIN 06:52
PROVIDERS: ATTEND Anesthesiology
DX: Z53.8 Procedure and treatment not carried out for other reasons (principal)

== ENCOUNTER → 2019-09-05 | Outpatient (CLI) | payer MEDICARE, OTHER ==
--- NOTE | 2019-09-05 20:58 | CONS ---
CONSULTATION REASON FOR CONSULTATION: Insomnia. This is a 43-year-old female patient who is complaining of insomnia. Her chief complain is, "I don't sleep." Upon further questioning, the patient started having problems at the age of 16. Prior to that, the patient used to sleep around 8 to 10 hours without any major difficulties. At the age of 16, she started sleeping somewhere between 3 and 4 hours and she kept on having the same pattern in her 20s and 30s. In her early 40s she was sleeping between 2 and 4 hours. At that point she was given Ambien by her primary care physician and she started sleeping somewhere between 3 and 4 hours; and with that she was happy. Nevertheless, she was unable to achieve an adequate number of hours of sleep. With changes in her primary care physician, there was resistance to have her Ambien refilled, and the patient decided to come in for further advice regarding her insomnia. Currently she is 43. She claims that she is sleeping as low as one hour; however, she is taking a few naps here and there during the day and she is probably averaging around 3 to 4 hours of sleep. She is feeling fatigued and tired during the day, and this is affecting her quality of life and ability to function, memory and concentration. She goes to bed early around 9 p.m.; however, she is unable to fall asleep. She claims that she does not get any anxiety, does not get any racing thoughts. She does not have any significant depression. She has been diagnosed having depression in the past and she is currently on no treatment. She has restlessness in her lower extremities; not typical of RLS; however, she is quite restless and she tosses and turns. She does have a history of fibromyalgia. She has been tried on gabapentin in the past and currently she is on no treatment. She has diffuse body aches and trigger points. In addition to that, she has chronic neck pain, as the patient suffered an occupational injury in a fall with subsequent development of cervical spine disease. She also claims to have osteoarthritis of her hip and she has been taking [place] through her primary care physician. She has been on one tablet every 6 hours on a regular basis for many years. Her treatment for fibromyalgia with gabapentin has been discontinued and she is not taking any treatment for anxiety or depression at this point in time. She also has remote history of anorexia, for which she was counseled, and she is well from that standpoint. Her current body mass index is 22.4. No history of snoring. No history of any witnessed apneas. She denies waking up choking or gasping for air. No significant grinding of the teeth. No dry mouth in the morning. Denies waking up in the middle of the night due to heartburn or shortness of breath or chest pain. Her current [place] score is only 1. She does not drink alcohol. No history of substance abuse. No history of any excess intake of caffeinated beverages or any other beverages that include high concentration of sugars or caffeine. She does not exercise. She takes a cold shower before going to bed. No other distractions in her bedroom environment. No TV watching. No light stimulation. No travel. No jet lags. No other significant comorbidities. PAST MEDICAL HISTORY: 1. Chronic insomnia. 2. Depression. 3. Anxiety. 4. History of anorexia. 5. Fibromyalgia. 6. History of RLS. 7. History of chronic neck pain related to degenerative disc disease along with arthritis of the hips. ALLERGIES: 1. DILAUDID. 2. TRAZODONE. 3. TRAMADOL. SURGICAL HISTORY: 1. Hysterectomy. 2. Tubal ligation. 3. Carpal tunnel release bilaterally. 4. Surgery for trigger . 5. Bladder surgery. SOCIAL HISTORY: The patient has 2 kids. She is currently living with a boyfriend. She smokes half- pack of cigarettes a day. No history of alcoholism. No history of substance abuse. FAMILY HISTORY: Negative for insomnia. Negative for any sleep apnea or any other form of sleep disorders. REVIEW OF SYSTEMS: Fourteen-point review of systems was done. Positive findings were all mentioned above in the history of present illness. PHYSICAL EXAMINATION: HER CURRENT VITALS: BP is 115/72, pulse 69, respirations 14, temperature 97.4, saturation 98% on room air. [place] Score is 1. BMI 22.4. Height is 5 feet 5 inches, weight 135. GENERAL APPEARANCE: Calm, comfortable. HEAD: Atraumatic, normocephalic. NECK: Supple. There is no JVD. No goiter or neck mass. Mallampati class I. LUNGS: Clear to auscultation. HEART: Heart sounds are regular rate and rhythm. Normal S1, S2. No S3, S4. No murmurs. ABDOMEN: Soft, nontender. No organomegaly. EXTREMITIES: No edema. No cyanosis or clubbing. NEUROLOGIC: The patient is awake and alert and there are no focal neurological deficits. IMPRESSION: 1. Chronic psychophysiologic insomnia. The patient has not been able to achieve more than 4 hours of sleep since the age of 16. Recently her sleep hours have gotten worse. There is obviously a component of impaired sleep hygiene, yet the patient has other comorbidities, including chronic anxiety and depression and fibromyalgia probably contributing to her chronic insomnia. Her symptoms have been chronic and the patient claims that she has been able to achieve around 3 to 4 hours of sleep with the use of Ambien, and she has been off Ambien for a few years. The insomnia is affecting her day-to-day functionality and her quality of life. 2. Chronic anxiety. 3. Chronic depression, which is currently inactive and stable. 4. Fibromyalgia. 5. History of anorexia. 6. History of restless leg syndrome. 7. History of chronic back pain and neck pain. 8. Arthritis of the hips. PLAN: This patient was interviewed. She was given full explanation about her disease process, which is chronic insomnia which obviously will need a combination of treatment, including pharmacotherapy and cognitive behavioral therapy. She was made aware that pharmacotherapy by itself is not enough. Ambien at best may give her an hour or two of sleep, and she had been taking it in the past without any major side effects. I am glad to renew the Ambien for her at the same dose of 10 mg. However, this will not be enough and is not a long-lasting or sustained response. She will ultimately need to implement good cognitive behavioral therapy. I explained to her stimulus control. I explained to her sleep restrictions. For now, will limit her sleep hours to between 1 a.m. and 6 a.m. until she achieves efficiency above 80%. Will gradually move her bedtime to earlier times. She was educated about issues related to her sleep hygiene. She will make the appropriate changes. She will be getting a sleep diary and she will set it up over the next one month. I will see her back in followup and make further recommendations. MMODL / IJN: [id number] /
== END | disposition home or self-care (01) ==
LOC: SLEEP 15:21
PROVIDERS: ATTEND Internal Medicine Critical Care Medicine
DX: F51.04 Psychophysiologic insomnia (principal); F41.8 Other specified anxiety disorders; F45.8 Other somatoform disorders; Z87.39 Personal history of other diseases of the musculoskeletal system and connective tissue; Z87.19 Personal history of other diseases of the digestive system; M16.0 Bilateral primary osteoarthritis of hip; F17.210 Nicotine dependence, cigarettes, uncomplicated; Z79.899 Other long term (current) drug therapy; Z88.6 Allergy status to analgesic agent; Z88.8 Allergy status to other drugs, medicaments and biological substances
CPT/HCPCS: 99211

== ENCOUNTER → 2019-10-03 | Outpatient (CLI) | payer MEDICARE, OTHER ==
--- NOTE | 2019-10-03 15:14 | PN ---
PROGRESS NOTE Fe is 43 with a history of insomnia. I saw her in consultation approximately a month ago. At that time, the patient was unable to sleep more than 4 hours. She was having obvious issues with sleep hygiene. We worked on improving her sleep hygiene and she had also multiple comorbidities including history of fibromyalgia and chronic anxiety and depression. During our last visit, we implemented good sleep hygiene measures. We discussed issues effecting her sleep quality in general, we also introduced sleep restrictions and today she is coming in for a followup. She did not bring in a sleep diary with her. However, based on the reported history she has improved considerably. She is able to go to bed at 9 o'clock and takes her about 15-20 minutes to fall asleep and she is getting at around 3 o'clock in the morning. She will take a tablet of Ambien and she would sleep until 9:00 am the next day. As such, she is probably averaging more than 7-8 hours of sleep. Nevertheless, she is feeling better. She is much more energetic and alert and refreshed during the day. She has no new complaints. No side effect of the Ambien. No substance abuse. She has undergone a jaw surgery/maxillofacial surgery with Dr. Santa and this has resulted in a considerate amount of discomfort and pain with somewhat affected also her sleep quality. For the most part, the patient is looking well and she wants to continue with the treatment. I advised her to go to bed later on during the night to improve her sleep efficiency even further. PHYSICAL EXAMINATION: Her current vital signs are as follows. Her temperature is 97, pulse is 88, respirations 16, BP is 109/70, [place] score is at 3. BMI is 22.6, weight is 136. GENERAL APPEARANCE: Calm, comfortable. HEAD: Atraumatic, normocephalic. NECK: Supple. No JVD. No goiter or neck mass. LUNGS: Clear to auscultation. HEART: Heart sounds are regular rate and rhythm. Normal S1, S2. No S3, S4. No murmurs. ABDOMEN: Soft, nontender. No organomegaly. EXTREMITIES: No edema. No cyanosis or clubbing. IMPRESSION: 1. Chronic psychophysiological insomnia, improving. 2. Poor sleep hygiene measures. 3. Chronic anxiety/depression. 4. Fibromyalgia. 5. Restless leg syndrome. 6. Chronic back pain/neck pain. 7. Degenerative arthritis. PLAN: I would like to restrict sleep hours further to improve the efficiency. Would like to ask the patient to go to bed around 11:00 and by doing so, I am hoping that the arousal at night time at around 3 am should resolve and ultimately the patient should wake up in the silk spooler hours, somewhere between 7 to 8 am. Continue the Ambien for now. Continue implementing good sleep hygiene measures. Pain is under good control for now. Continue maintaining a sleep diary and see me back in followup in 2 months' time. Refills on the Ambien were given. MMODL / IJN: [id number] /
== END ==
LOC: SLEEP 14:14
PROVIDERS: ATTEND Internal Medicine Critical Care Medicine
DX: F51.04 Psychophysiologic insomnia (principal); F41.8 Other specified anxiety disorders; G25.81 Restless legs syndrome; G89.29 Other chronic pain; M54.9 Dorsalgia, unspecified; M54.2 Cervicalgia; M19.90 Unspecified osteoarthritis, unspecified site

== ENCOUNTER → 2019-12-05 | Outpatient (CLI) | payer MEDICARE, OTHER ==
--- NOTE | 2019-12-05 15:28 | PN ---
PROGRESS NOTE Fe is a 43-year-old female patient with history of psychophysiologic insomnia. The patient was initially seen in consultation in September of 2019. I spent a lot of time with her regarding counseling this patient about insomnia and work and her sleep hygiene and at the same time implementing various measures including sleep restriction and stimulus control. She was doing well and she was able to achieve a good 5 to 6 hours of sleep with the help of Ambien also along with competitive behavioral therapy. Recently with her menopausal changes, her sleep has gotten more disrupted and she is sleeping less number of hours. She is otherwise doing well. No specific complaints. She is staying with Ambien 10 mg at bedtime. She is going to bed later around 11 o'clock and she is able to achieve a good 5-6 hours of sleep. No sleepwalking. No daytime hypersomnia or sleepiness. No substance abuse. No alcoholism. No recent weight gain or weight loss. Her condition remains essentially unchanged. REVIEW OF SYSTEMS: Fourteen-point review of system was done. Positive findings were mentioned in history of present illness. She has chronic anxiety, depression which is currently inactive and stable in addition to chronic fibromyalgia and RLS. She has also degenerative arthritis. BP is 104/65, pulse 72, respirations 16, temperature 98.3, saturation 97% on room air. Height is 5, 5, weight is 138, BMI 22.9. GENERAL APPEARANCE: Calm, comfortable. HEAD: Atraumatic, normocephalic. NECK: Supple. There is no JVD. No goiter or neck mass. LUNGS: Clear to auscultation. HEART: Sounds are regular rate and rhythm. Normal S1, S2. No S3, S4. No murmurs. ABDOMEN: Soft, nontender. No organomegaly. EXTREMITIES: No edema. No cyanosis or clubbing. NEUROLOGIC: Awake and alert. There are no focal neurological deficits. IMPRESSION: 1. Chronic psychophysiologic insomnia. 2. Poor sleep hygiene measures. 3. Chronic anxiety and depression along with fibromyalgia. 4. Chronic neck pain along with neck pain and degenerative arthritis. PLAN: 1. Implement cognitive Behavioral therapy. 2. Continue with Ambien for sleep induction and maintenance. 3. Improve sleep hygiene measures and all of this being implemented. 4. See me back in 6 months' time and followup treatment is successful for now. Treatment of menopause per Dr. Prasad. MMODL / IJN: [id number] /
== END | disposition home or self-care (01) ==
LOC: SLEEP 13:20
PROVIDERS: ATTEND Internal Medicine Critical Care Medicine
DX: F51.04 Psychophysiologic insomnia (principal); G89.29 Other chronic pain; M19.90 Unspecified osteoarthritis, unspecified site; M54.2 Cervicalgia; M79.7 Fibromyalgia; F41.8 Other specified anxiety disorders

== ENCOUNTER → 2021-01-13 | Outpatient (CLI) | payer MEDICARE, OTHER ==
[2021-01-13 09:42] VITALS: BP 119/81; PULSE 61; RESP 16; TEMP 97.6
--- NOTE | 2021-01-13 11:59 | P.PN ---
Subjective Progress Note Date: 01/20/21 Principal diagnosis: Thoracic back pain, and lumbar back pain Mrs. Arauz is a 45-year-old pleasant female came to the [facility] clinic for follow-up visit. Patient has ongoing chronic low back pain, and thoracic pain for many years. She was moved from [place] to [place] recently. She had multiple intervention procedures done in [place]. She also had laser lumbar spine surgery in [place]. Currently she is complaining more pain in her thoracic area which is aching, throbbing type. Sometimes she has difficulty in performing her activities. She had thoracic spine MRI done, but patient has no report at this time with her. Patient described her pain is aching, throbbing type. She rated her pain is 6 out of 10 in severity. Activities making her pain worse. Pain medications, and physical therapy helping to some extent. She denied any red flag symptoms related to pain. Denied any side effects with the medications. 13 point review of systems negative except as mentioned in the history of present illness. Objective - Vital Signs Vital signs: Vital Signs Temp 97.6 F 01/13/21 09:40 Pulse 61 01/13/21 09:40 Resp 16 01/13/21 09:40 BP 119/81 01/13/21 09:40 Pulse Ox 100 01/13/21 09:40 - Exam General: well-developed, well-nourished, no acute distress. HEENT: Normocephalic, atraumatic. Neck: supple, trachea midline CVS: Regular rate and rhythm Pulmonary : Not in labored breathing. Neurologic: No noticeable focal neurological deficits. Psychiatric: Appropriate mood and affect. Musculoskeletal: Upper extremity : Normal strength and range of motion, and sensation grossly intact.. Lower extremity: Normal strength and decreased range of motion secondary to pain. Sensation grossly intact Lumbar spine range of motion: Decreased in flexion, extension, and lateral bending secondary to pain Lumbar paraspinal muscle tenderness: Positive. Multiple Healed lumbar scars. Lumbar facet loading test: Positive Sacroiliac joint tenderness: Negative Lumbar spine trigger points : Negative. Multiple trigger points positive over cervical, and upper thoracic area. Assessment and Plan Assessment: Myofascial pain syndrome Lumbar spondylosis without myelopathy Chronic thoracic back pain Plan: 1. Diagnoses, prognoses, and multiple treatment options including but not limited to physical therapy, interventional therapies, adjunct medical therapies, and surgical options were discussed with the patient and all questions were answered to the patients satisfaction. 2. Treatment plan agreement: Patient was discussed regarding the medication side effects, and complications associated medications. 3. The patient was counseled on importance of regular exercise in controlling chronic pain as well as in terms of overall well-being. Patient counseled regarding the importance of regular exercise, and minimizing the intake of carbohydrates, and process foods which may help in decreasing the inflammation, and helps overall well-being. 4. Consultations: Continue physical therapy exercises at home 5. Investigations: MAPS- appropriate , and urine drug test- not done. 6. Diagnostic studies: None. 7. Interventional procedures: Thoracic trigger point injections 8. Medications: None from the pain clinic 9. Morphine milligram equivalent (MME) doses: 0 from the pain clinic. 10. Durable Medical Equipment (DME) : TENS units. 11. Disposition: Scheduled for follow-up in 4 weeks duration. I have spent 26 minutes with this patient. Including but not limited to: [id number] time, on physical examination, electronic medical record review, counseling, and documentation
== END ==
LOC: PNWHC3 09:21
DX: M54.6 Pain in thoracic spine (principal); M79.18 Myalgia, other site; M47.816 Spondylosis without myelopathy or radiculopathy, lumbar region
CPT/HCPCS: 99211

== ENCOUNTER 2021-11-13 19:12 | Emergency (ER) | payer MEDICARE, OTHER ==
[2021-11-13 19:20] VITALS: TEMP 98.1
--- NOTE | 2021-11-13 20:09 | XR ---
EXAMINATION: XR chest 2V DATE AND TIME: 11/13/2021 7:58 PM CLINICAL INDICATION: chest pain/ possible covid TECHNIQUE: Departmental protocol COMPARISON: 12/09/2018 FINDINGS: The lungs are clear. The pleural spaces are negative. The cardiac silhouette is not enlarged. The remainder of the mediastinal silhouette is unremarkable. The skeletal structures and soft tissues are negative for acute findings. IMPRESSION: NO ACUTE PROCESS.
[2021-11-13] MEDS ORDERED: HYDROmorphone 1 MG/ML 1 ML SYRINGE IM STA (20:11)
[2021-11-13] MEDS ORDERED: ONDANSETRON 4 MG ODT STARTER PACK 2 TAB BTL PO STA (20:11)
--- NOTE | 2021-11-13 20:14 | ED ---
General Adult HPI - General Chief complaint: Headache Stated complaint: Chest Pain,Fever,Chills,Headache Time Seen by Provider: 11/13/21 19:58 Source: patient Mode of arrival: ambulatory Limitations: no limitations - History of Present Illness Initial comments: 45 year-old female patient presents to the emergency department for evaluation of headache and upper respiratory symptoms. States she has been nauseated and extremely fatigued. Reports hot flashes and possible fevers. Reports chest tightness and discomfort. States she has had a headache for the last two weeks. States it is over the entirety of her head and into her neck. Reports eye pain. Did take norco prior to coming in. She is not vaccinated above believed she had COVID-19 approximately 2 years ago early in the pandemic. She denies taking any other medication for her symptoms. Denies chance of . - Related Data Home Medications Medication Instructions Recorded Confirmed Hydrochlorothiazide 25 mg PO DAILY 02/14/16 11/13/21 HYDROcodone/APAP 10-325MG [[place] 1 tab PO Q6HR PRN 07/12/19 11/13/21 10-325] Aspirin/Acetaminophen/Caffeine 4 tab PO DAILY PRN 11/13/21 11/13/21 [Excedrin Migraine Caplet] Atorvastatin [Lipitor] 20 mg PO HS 11/13/21 11/13/21 Metoprolol Tartrate [Lopressor] 100 mg PO DAILY 11/13/21 11/13/21 Potassium Gluconate [Potassium 99 mg PO BID 11/13/21 11/13/21 Gluconate ER] Zolpidem Tartrate [Ambien] 10 mg PO HS 11/13/21 11/13/21 Previous Rx's Medication Instructions Recorded Ondansetron [Zofran ODT] 4 mg PO Q8HR PRN #20 tab 11/13/21 Allergies Allergy/AdvReac Type Severity Reaction Status Date / Time ketorolac tromethamine Allergy Severe Dyspnea Verified 11/13/21 21:13 [From Toradol] diphenhydramine Allergy Itching OF Verified 11/13/21 21:13 [From Benadryl] THROAT" peanut Allergy Swelling Verified 11/13/21 21:13 OF THROAT, pregabalin [From Lyrica] Allergy Rash/Hives Verified 11/13/21 21:13 varenicline tartrate Allergy Rash/Hives Verified 11/13/21 21:13 [From Chantix] Latex, Natural Rubber AdvReac Rash/Hives Verified 11/13/21 21:13 nicotine patch AdvReac Unknown Rash/Hives Uncoded 07/27/19 12:51 Review of Systems ROS Statement: Those systems with pertinent positive or pertinent negative responses have been documented in the HPI. ROS Other: All systems not noted in ROS Statement are negative. Past Medical History Past Medical History: Asthma, Fibromyalgia, GERD/Reflux, Hyperlipidemia, Hypertension, Myocardial Infarction ([place]), Rheumatoid Arthritis ([place]), Skin Disorder Additional Past Medical History / Comment(s): HEART PALPITATIONS-RESOLVED. PSORIASIS HEAD. CHRONIC BACK, NECK PAIN; BOTH ARMS & SHOULDERS ALSO; NUMBNES IN ARMS, ( liver findings) Last Myocardial Infarction Date:: 1998 History of Any Multi-Drug Resistant Organisms: None Reported Past Surgical History: Bladder Surgery, Hysterectomy, Orthopedic Surgery, Tonsillectomy Additional Past Surgical History / Comment(s): RT HEEL SURG., EPIDURAL INJECTIONS( BACK AND HIPS); Trigger Fingers both handsX3. MULT PAIN PROC. CTR LT HAND X2/ctr rt hand TRIGGER FINGER LEFT HAND Past Anesthesia/Blood Transfusion Reactions: Previous Problems w/ Anesthesia, Motion Sickness, Postoperative Nausea & Vomiting (PONV) Additional Past Anesthesia/Blood Transfusion Reaction / Comment(s): SLOW TO AWAKEN FROM ANESTHESIA YEARS AGO X1. Past Psychological History: Anxiety, Depression, Panic Disorder Smoking Status: Former smoker, Vaper Past Alcohol Use History: None Reported Past Drug Use History: None Reported - Past Family History Father Family Medical History: Deep Vein Thrombosis (DVT) Mother Family Medical History: Deep Vein Thrombosis (DVT) General Exam Limitations: no limitations General appearance: alert, in no apparent distress, other (This is a well- developed, well-nourished adult female patient in no acute distress.) ENT exam: Present: normal exam, normal oropharynx, mucous membranes moist Respiratory exam: Present: normal lung sounds bilaterally. Absent: respiratory distress, wheezes, rales, rhonchi, stridor Cardiovascular Exam: Present: regular rate, normal rhythm, normal heart sounds. Absent: systolic murmur, diastolic murmur, rubs, gallop, clicks GI/Abdominal exam: Present: soft, normal bowel sounds. Absent: distended, tenderness, guarding, rebound, rigid Neurological exam: Present: alert, oriented X3, CN II-XII intact Psychiatric exam: Present: normal affect, normal mood Skin exam: Present: warm, dry, intact, normal color. Absent: rash Course Vital Signs 11/13/21 11/13/21 11/13/21 19:14 20:07 20:51 Temperature 98.1 F Pulse Rate 67 72 66 Respiratory 18 16 16 Rate Blood Pressure 106/74 127/64 121/66 O2 Sat by Pulse 100 97 97 Oximetry 11/13/21 21:33 Temperature Pulse Rate 65 Respiratory 18 Rate Blood Pressure O2 Sat by Pulse 98 Oximetry EKG Findings - EKG Comments: EKG Findings:: EKG obtained at 2003 shows sinus bradycardia with a first-degree AV block. Ventricular 68, AR interval 250, QRS duration 84, QTC 452, QTc 443. No evidence of ST elevation or depression. Medical Decision Making - Medical Decision Making 45-year-old female patient presents to the emergency department today for a variation of headache, upper respiratory symptoms, loss of taste and smell. Physical examination is unremarkable. She is neurologically intact with no focal deficits. She tested negative for influenza and Covid. Upon reevaluation she is resting comfortably in bed. We did discuss computed tomography scan of her head, she declined. We also discussed possibility of Covid infection at the beginning of her symptoms 2 weeks ago though now testing negative. She is instructed to follow-up with her primary care physician for recheck in 1-2 days. Return parameters were discussed in detail. She verbalizes understanding and agrees with this plan. My attending is Dr. Blackburn. - Lab Data Lab Results 11/13/21 11/13/21 Range/Units 20:15 20:15 Coronavirus (PCR) Not Detected (Not Detectd) Influenza Type A RNA Not Detected (Not Detectd) Influenza Type B (PCR) Not Detected (Not Detectd) Disposition Clinical Impression: Headache, Nausea Disposition: HOME SELF-CARE Condition: Good Instructions (If sedation given, give patient instructions): Acute Headache (ED), Acute Nausea and Vomiting (ED) Additional Instructions: Follow up with the primary care physician for recheck in 1-2 days. Take medications as directed. Follow-up with the primary care physician for recheck in 1-2 days. Return for any new, worsening, or concerning symptoms. Prescriptions: Ondansetron [Zofran ODT] 4 mg PO Q8HR PRN #20 tab PRN Reason: Nausea Is patient prescribed a controlled substance at d/c from ED?: No Referrals: None,Stated [Primary Care Provider] - 1-2 days Time of Disposition: 21:48
[2021-11-13 20:52] VITALS: BP 121/66
[2021-11-13 21:34] VITALS: PULSE 65; RESP 18
== END 2021-11-13 22:01 | disposition home or self-care (01) ==
LOC: EC 19:12
DX: R51.9 Headache, unspecified (principal); R11.0 Nausea; R07.89 Other chest pain; R50.9 Fever, unspecified; I25.2 Old myocardial infarction; J45.909 Unspecified asthma, uncomplicated; K21.9 Gastro-esophageal reflux disease without esophagitis; E78.5 Hyperlipidemia, unspecified; I10 Essential (primary) hypertension; M79.7 Fibromyalgia; M06.9 Rheumatoid arthritis, unspecified; Z88.6 Allergy status to analgesic agent; Z88.8 Allergy status to other drugs, medicaments and biological substances; Z91.010 Allergy to peanuts; Z91.040 Latex allergy status; Z79.899 Other long term (current) drug therapy; Z20.822 Contact with and (suspected) exposure to COVID-19; Z87.891 Personal history of nicotine dependence
CPT/HCPCS: 93005; 87502; 87635; 71046; 96372; 99285; J1170; S0119

== ENCOUNTER 2021-12-03 00:10 | Emergency (ER) | payer MEDICARE, OTHER ==
[2021-12-03 00:23] VITALS: BP 122/85; PULSE 81; RESP 20; TEMP 97.7
--- NOTE | 2021-12-03 01:20 | XR ---
EXAMINATION TYPE: XR Hip Complete LT DATE OF EXAM: 12/03/2021 COMPARISON: NONE HISTORY: Hip pain TECHNIQUE: 2 views FINDINGS: I see no fracture nor dislocation. Joint spaces are fairly normal. Sacroiliac joint appears normal. Proximal femur is intact. IMPRESSION: Negative left hip exam. No fracture.
--- NOTE | 2021-12-03 02:05 | ED ---
General Adult HPI - General Chief complaint: Extremity Injury, Lower Stated complaint: Left hip pain Time Seen by Provider: 12/03/21 02:04 Source: patient Mode of arrival: wheelchair Limitations: no limitations - History of Present Illness Initial comments: 45-year-old female presents to the emergency room for left hip pain. Patient states she was sitting at her table earlier this evening and went to stand up and felt a sudden pain in the left hip. Patient states she has been able to walk on it but it is painful. Patient states she has a history of bursitis. Patient denies any fevers. Patient denies any weakness of the leg.Patient has no other complaints at this time including shortness of breath, chest pain, abdominal pain, nausea or vomiting, headache, or visual changes. - Related Data Home Medications Medication Instructions Recorded Confirmed Hydrochlorothiazide 25 mg PO DAILY 02/14/16 11/13/21 HYDROcodone/APAP 10-325MG [[place] 1 tab PO Q6HR PRN 07/12/19 11/13/21 10-325] Aspirin/Acetaminophen/Caffeine 4 tab PO DAILY PRN 11/13/21 11/13/21 [Excedrin Migraine Caplet] Atorvastatin [Lipitor] 20 mg PO HS 11/13/21 11/13/21 Metoprolol Tartrate [Lopressor] 100 mg PO DAILY 11/13/21 11/13/21 Potassium Gluconate [Potassium 99 mg PO BID 11/13/21 11/13/21 Gluconate ER] Zolpidem Tartrate [Ambien] 10 mg PO HS 11/13/21 11/13/21 Previous Rx's Medication Instructions Recorded Ondansetron [Zofran ODT] 4 mg PO Q8HR PRN #20 tab 11/13/21 Allergies Allergy/AdvReac Type Severity Reaction Status Date / Time ketorolac tromethamine Allergy Severe Dyspnea Verified 12/03/21 00:21 [From Toradol] diphenhydramine Allergy Itching OF Verified 12/03/21 00:21 [From Benadryl] THROAT" peanut Allergy Swelling Verified 12/03/21 00:21 OF THROAT, pregabalin [From Lyrica] Allergy Rash/Hives Verified 12/03/21 00:21 varenicline tartrate Allergy Rash/Hives Verified 12/03/21 00:21 [From Chantix] Latex, Natural Rubber AdvReac Rash/Hives Verified 12/03/21 00:21 nicotine patch AdvReac Unknown Rash/Hives Uncoded 12/03/21 00:21 Review of Systems ROS Statement: Those systems with pertinent positive or pertinent negative responses have been documented in the HPI. ROS Other: All systems not noted in ROS Statement are negative. Past Medical History Past Medical History: Asthma, Fibromyalgia, GERD/Reflux, Hyperlipidemia, Hypertension, Myocardial Infarction ([place]), Rheumatoid Arthritis (RA), Skin Disorder Additional Past Medical History / Comment(s): HEART PALPITATIONS-RESOLVED. PSORIASIS HEAD. CHRONIC BACK, NECK PAIN; BOTH ARMS & SHOULDERS ALSO; NUMBNES IN ARMS, ( liver findings) Last Myocardial Infarction Date:: 1998 History of Any Multi-Drug Resistant Organisms: None Reported Past Surgical History: Bladder Surgery, Hysterectomy, Orthopedic Surgery, Tonsillectomy Additional Past Surgical History / Comment(s): RT HEEL SURG., EPIDURAL INJECTIONS( BACK AND HIPS); Trigger Fingers both handsX3. MULT PAIN PROC. CTR LT HAND X2/ctr rt hand TRIGGER FINGER LEFT HAND Past Anesthesia/Blood Transfusion Reactions: Previous Problems w/ Anesthesia, Motion Sickness, Postoperative Nausea & Vomiting (PONV) Additional Past Anesthesia/Blood Transfusion Reaction / Comment(s): SLOW TO AWAKEN FROM ANESTHESIA YEARS AGO X1. Past Psychological History: Anxiety, Depression, Panic Disorder Smoking Status: Former smoker, Vaper Past Alcohol Use History: None Reported Past Drug Use History: None Reported - Past Family History Father Family Medical History: Deep Vein Thrombosis (DVT) Mother Family Medical History: Deep Vein Thrombosis (DVT) General Exam Limitations: no limitations General appearance: alert, in no apparent distress Head exam: Present: atraumatic Eye exam: Present: normal appearance, PERRL, EOMI. Absent: scleral icterus, conjunctival injection ENT exam: Present: normal exam, mucous membranes moist Neck exam: Present: normal inspection, full ROM Respiratory exam: Absent: respiratory distress Extremities exam: Present: tenderness (Tenderness to the lateral left hip.), normal capillary refill (Capillary refill less than 2 seconds left lower extremity.). Absent: full ROM (Patient able to flex at 90, extend to the neutral position.) Course Vital Signs 12/03/21 00:21 Temperature 97.7 F Pulse Rate 81 Respiratory 20 Rate Blood Pressure 122/85 O2 Sat by Pulse 98 Oximetry Medical Decision Making - Medical Decision Making Vitals are stable. Patient is well-appearing. States she has been able to walk on it prior to being in the emergency room. X-ray of the left hip is negative for fractures. At this time patient can be discharged to follow up with primary care or orthopedics. I did offer crutches however she refused stating she doesnt need them. He'll return here for any worsening symptoms. Disposition Clinical Impression: Hip pain, left Disposition: HOME SELF-CARE Condition: Good Instructions (If sedation given, give patient instructions): Hip Pain (ED) Additional Instructions: Please follow-up with your doctor in one to 2 days. You can follow up with orthopedics as well. Return to the emergency room for any worsening symptoms. Is patient prescribed a controlled substance at d/c from ED?: No Referrals: Antelmo Banuelos MD [STAFF PHYSICIAN] - 1-2 days Time of Disposition: 02:04
== END 2021-12-03 02:10 | disposition home or self-care (01) ==
LOC: EC 00:10
DX: M25.552 Pain in left hip (principal); J45.909 Unspecified asthma, uncomplicated; M06.9 Rheumatoid arthritis, unspecified; I10 Essential (primary) hypertension; I21.9 Acute myocardial infarction, unspecified; F17.200 Nicotine dependence, unspecified, uncomplicated; Z79.02 Long term (current) use of antithrombotics/antiplatelets; Z91.010 Allergy to peanuts; Z91.040 Latex allergy status; Z88.8 Allergy status to other drugs, medicaments and biological substances; Z88.9 Allergy status to unspecified drugs, medicaments and biological substances; Z88.4 Allergy status to anesthetic agent
CPT/HCPCS: 73502; 99284

== ENCOUNTER → 2022-04-21 | Outpatient (CLI) | payer MEDICARE, OTHER ==
--- NOTE | 2022-04-21 14:55 | P.PN ---
Subjective Progress Note Date: 04/21/22 This is a 46-year-old female patient is coming in follow-up regarding her chronic insomnia. I've seen this patient several years ago and the patient was diagnosed having psychophysiologic insomnia and the patient was able to achieve a good 5-6 hours of sleep with implementation of cognitive behavioral therapy which included stimulus control and sleep restriction and the patient was also receiving Ambien 10 mg as pharmacotherapy. Note that during the pandemic, the patient failed to follow-up with me in the office. On few instances, she was given her Ambien refills. Subsequently, the patient moved to [place] where she stayed for around 6 months and she came back. During this time, she was not taking her Ambien and she reported markedly worsen his sleep quality while being off the Ambien. She is currently going to bed around 10:30 PM. She will be beginning out of her bed at around 7 AM in the morning. Nevertheless, while off Ambien, she is unable to maintain her sleep when she wakes up frequently in the middle of night. Her anxiety and depression has been adequately controlled for now and she has chronic fibromyalgia for which she takes [place] on an as-needed basis and this is being given to her by Dr. Cortez. No substance abuse. She drinks alcohol occasionally and she is a social drinker. No exercises utilization of alcohol. No major daytime hypersomnia to sleepiness. She is not taking naps during the day. She is avoiding taking caffeinated beverages and after known for at least 3-4 hours prior to going to bed. No weight gain. No new onset, but conditions and no sleepwalking. No history of any drug overdose. No other complaints otherwise for now. She is known to have hypertension and she takes a combination of medication for that and she is also known to have hyperlipidemia. Objective - Exam BP is 127/77 with a pulse of 80 respirations 16 temperature 97.1 with a saturation of 98% on room air. Body mass index is 23.8. Wallace score is 0 The patient appeared well nourished and normally developed. Vital signs as documented. Head exam is unremarkable. No scleral icterus or corneal arcus noted. Neck is without jugular venous distension, thyromegaly, or carotid bruits. Carotid upstrokes are brisk bilaterally. Lungs are clear to auscultation and percussion. Cardiac exam reveals the PMI to be normally sized and situated. Rhythm is regular. First and second heart sounds normal. No murmurs, rubs or gallops. Abdominal exam reveals normal bowel sounds, no masses, no organomegaly and no aortic enlargement. Extremities are nonedematous and both femoral and pedal pulses are normal.Examination of the skin revealed no evidence of significant rashes, suspicious appearing nevi or other concerning lesions.Neurologically, the patient is awake and alert and the patient does not have any focal neurological deficit. Cranial nerves are essentially intact. Assessment and Plan Plan: Chronic psychophysiologic insomnia Chronic anxiety/depression Fibromyalgia Chronic pain syndrome Hypertension Hyperlipidemia Previous history of COVID 19 infection Plan Recommend sleep hygiene measures. Continuously was controlled to sleep restriction as part of cognitive behavior therapy. Refill Ambien at same doses The patient will maintain a regular sleep schedule. Went over her sleep habits. Appropriate recommendations were made. Ambien can be refilled through her primary care physician as the patient has benefited from this medication and she is also implementing good sleep hygiene measures and cognitive behavioral therapy.
== END | disposition home or self-care (01) ==
LOC: SLEEP 13:30
PROVIDERS: ATTEND Internal Medicine Critical Care Medicine
DX: F51.04 Psychophysiologic insomnia (principal); F41.9 Anxiety disorder, unspecified; F32.9 Major depressive disorder, single episode, unspecified; M79.7 Fibromyalgia; I10 Essential (primary) hypertension; E78.5 Hyperlipidemia, unspecified; Z86.16 Personal history of COVID-19

== ENCOUNTER → 2023-02-10 | Outpatient (CLI) | payer MEDICARE, OTHER ==
[2023-02-10 13:51] VITALS: BP 116/66; PULSE 63; RESP 18; TEMP 97.9
--- NOTE | 2023-02-10 14:47 | P.PAINPG ---
PQRS Measure Charge Sheet Comment: A 47 yr old female with a history of severe and chronic neck pain secondary to cervical DDD and spondylosis with facet arthropathy without myelopathy presents today for neck pain. Pain level is provoked at 8/10 in intensity, constant, localized in the cervical spine, sore in character w shooting towards the L shoulder and LUE. Pain is provoked by lifting and rotation. Pain is alleviated with PT w massage x 2 mo in Jul 2022, heat, ice, medications (Percocet), topical, repositioning and rest. Interventional pain procedures completed include L paramedian C7-T1 VALENTINA, BL RFA L3-L5 Patient is currently on Percocet from Dr Cortez Patient denies any side effects of the medication(s), denies excessive caitlin wsiness or sleepiness, denies suicidal ideation and reports that the current pain medication is helping to control the pain and improve activities of daily living. Patient denies any motor or sensory deficits. Patient denies any fever or night sweats, denies any change in the bowel movements or urination. Physical Examination: -Constitutional: Cooperative. Not in acute distress . - Neurologic: Cranial nerve II to XII intact. No focal neurological deficits. - Psychatric: Alert & oriented x 3. Matching mood & appropriate affect. Judgment and insight intact. - Musculoskeletal: Cervical spine: Muscle bulk/ tone/ strength in the bilateral upper extremities normal Vertebral body tenderness to palpation over C7 Spurling test positive Distraction test positive Facet loading test positive TTP Thoracic spine Muscle bulk / tone/ strength in the bilateral paraspinal muscles normal Vertebral body tender to palpation over Facet loading test positive TTP Lumbar spine: Motor bulk/ tone/ strength lower extremities , thigh and legs : 5/5 Deep tendon reflexes : Normal Knee Jerk. Normal Ankle Jerk . Vertebral body tenderness to palpation over Lumbar Facet Loading Test positive Straight Leg Raise: positive at 30 degrees right side/ left side Gaenslen's Test positive Sacral spine : Severe tenderness over the Sacroiliac joint: right side / left side Range of motion: Flexion of the lumbar spine <60 degrees Range of motion: Extension of the lumbar spine <20 degrees Gaenslen's Test positive R / L Boyd test: positive right side / left side Thigh Thrust Test positive R / L Sacral Thrust Test positive R/ L Imaging: MRI without contrast of the cervical spine from 02/18/22 reviewed Assessment and plan: Chronic neck pain secondary to cervical DDD, spondylosis with facet arthropathy without myelopathy Recommendation of L paramedian VALENTINA C7-T1 #1. May need a series of injections for optimal pain relief. Risks, benefits of procedure discussed and pt verbalized understanding. Admits to anticoagulant use or medical history of diabetes. Protocol for discontinuation/ continuation of medications leroy procedure discussed. All questions answered. I have spent less than 30 minutes on patient care today. Dr Hendrix was available by phone for the evaluation of this patient. The time was used to review the medical records including relevant urine studies and Prescription history (MAPs), review of the available imaging, evaluation and examination of the patient, coordination of care with the medical staff and if applicable referring physicians, as well as creation of the medical record PQRS Narrative: Smoking Status Current every day smoker Narcotic Agreement Date Signed 02/12/14 Hx Alcohol Use (MH) Yes: RARE Home Medications: Ambulatory Orders Hydrochlorothiazide 25 mg PO DAILY 02/14/16 HYDROcodone/APAP 10-325MG [[place] 10-325] 1 tab PO Q6HR PRN 07/12/19 Aspirin/Acetaminophen/Caffeine [Excedrin Migraine Caplet] 4 tab PO DAILY PRN 11/13/21 Metoprolol Tartrate [Lopressor] 100 mg PO DAILY 11/13/21 Ondansetron [Zofran ODT] 4 mg PO Q8HR PRN #20 tab 11/13/21 Potassium Gluconate [Potassium Gluconate ER] 99 mg PO BID 11/13/21 Zolpidem Tartrate [Ambien] 10 mg PO HS 11/13/21 Atorvastatin [Lipitor] 80 mg PO DAILY 11/19/22 Controlled Substance Measures - Controlled Substance Measures Is patient prescribed a controlled substance at discharge?: No
== END ==
LOC: PNWHC3 10:35
PROVIDERS: ATTEND Specialist
DX: M50.30 Other cervical disc degeneration, unspecified cervical region (principal); M50.323 Other cervical disc degeneration at C6-C7 level; M47.812 Spondylosis without myelopathy or radiculopathy, cervical region; G89.29 Other chronic pain; F17.200 Nicotine dependence, unspecified, uncomplicated; Z79.82 Long term (current) use of aspirin; Z88.1 Allergy status to other antibiotic agents; Z91.010 Allergy to peanuts; Z91.040 Latex allergy status; Z91.048 Other nonmedicinal substance allergy status
CPT/HCPCS: 99211

== ENCOUNTER → 2023-07-12 | Outpatient (CLI) | payer MEDICARE, OTHER ==
--- NOTE | 2023-07-14 08:18 | MM ---
Reason for Exam: Screening (asymptomatic). Last mammogram was performed 6 year(s) and 3 month(s) ago. Patient History: Menarche at age 10. First Full-Term at age 18. Left ovary removed at age 35. Hysterectomy at age 35. Postmenopausal. Patient has history of breast feeding. Maternal grandmother had breast cancer, age 50. Maternal aunt had breast cancer. Mother had breast cancer, age 40. Risk Values: Shanice 5 year model risk: 1.8%. NCI Lifetime model risk: 16.7%. Prior Study Comparison: 07/22/2012 Bilateral Diagnostic Mammogram, [facility]. 08/22/2014 Screening Mammogram, [facility]. 04/09/2017 Bilateral Diagnostic Mammogram, [facility]. Tissue Density: The breast tissue is heterogeneously dense. This may lower the sensitivity of mammography. Findings: Analyzed By CAD. There is no suspicious group of microcalcifications or new suspicious mass. Overall Assessment: Negative, BI-RAD 1 Management: Screening Mammogram of both breasts in [address] [facility] will attempt to contact patient to return for supplemental views and ultrasound if indicated. Patient should continue monthly self-breast exams. A clinical breast exam by your physician is recommended on an annual basis. This exam should not preclude additional follow-up of suspicious palpable abnormalities. Note on Shanice scores and lifetime risk: 1. A Shanice score greater than 3% is considered moderate risk. If this is the case, consider specialist referral to assess eligibility for a risk reducing agent. 2. If overall lifetime risk for the development of breast cancer is 20% or higher, the patient may qualify for future screening with alternating mammogram and breast MRI. Electronically signed and approved by: Gerardo Long DO
== END | disposition home or self-care (01) ==
LOC: RADMAMWWP 09:01
PROVIDERS: ATTEND Family Medicine
DX: Z12.31 Encounter for screening mammogram for malignant neoplasm of breast (principal); Z80.3 Family history of malignant neoplasm of breast; Z78.0 Asymptomatic menopausal state
CPT/HCPCS: 77063; 77067

== ENCOUNTER 2024-09-26 18:04 | Emergency (ER) | payer MEDICARE, OTHER ==
[2024-09-26 18:10] VITALS: RESP 18
--- NOTE | 2024-09-26 18:33 | ED ---
Overdose HPI - General Chief Complaint: Overdose Stated Complaint: POSSIBLE OVERDOSE Time Seen by Provider: 09/26/24 18:24 Source: patient, family, RN notes reviewed Mode of arrival: ambulatory Limitations: no limitations - History of Present Illness Initial Comments: 48-year-old female presenting for overdose. Patient states she has been taking Ambien nightly for many years for insomnia. Daughter is at bedside who states she counted 30 pills in her new Ambien prescription from yesterday, and today counted 24 pills. Patient states she took 1 Ambien last night at 8 PM but reports she does not remember taking the other 5. Patient lives with her mother and reports she does not remember any events from today. Family reports patient has been confused and weak. Patient had a headache today however took a [place] which relieved symptoms. Patient denies suicidal ideation, however daughter explains that patient had mentioned "not wanting to be here anymore" to patient's mother. Patient has been struggling with depression since her dad 7 months ago. Denies history of overdose or suicide attempts. - Related Data Home Medications Medication Instructions Recorded Confirmed HYDROcodone/APAP 10-325MG [[place] 1 tab PO QID 07/12/19 09/26/24 10-325] Zolpidem Tartrate [Ambien] 10 mg PO HS 11/13/21 09/26/24 Atorvastatin [Lipitor] 80 mg PO DAILY 11/19/22 09/26/24 Cholecalciferol (Vitamin D3) 50 mcg PO DAILY 09/26/24 09/26/24 [Vitamin D3 (50 Mcg = 2000 Iu)] Ibuprofen [Motrin] 800 mg PO BID PRN 09/26/24 09/26/24 Losartan [Cozaar] 25 mg PO DAILY 09/26/24 09/26/24 Magnesium (Unknown Strength) 1 tab PO DAILY 09/26/24 09/26/24 Metoprolol Succinate [Metoprolol 25 mg PO DAILY 09/26/24 09/26/24 Succinate ER] Jqr-Stxd-Lehlr Acid 1 cap PO DAILY 09/26/24 09/26/24 [-U Capsule (formulary)] Previous Rx's Medication Instructions Recorded Ondansetron [Zofran ODT] 4 mg PO Q8HR PRN #20 tab 11/13/21 Allergies Allergy/AdvReac Type Severity Reaction Status Date / Time ketorolac tromethamine Allergy Severe Dyspnea Verified 09/26/24 20:30 [From Toradol] diphenhydramine Allergy Itching OF Verified 09/26/24 20:30 [From Benadryl] THROAT" peanut Allergy Swelling Verified 09/26/24 20:30 OF THROAT, pregabalin [From Lyrica] Allergy Rash/Hives Verified 09/26/24 20:30 varenicline tartrate Allergy Rash/Hives Verified 09/26/24 20:30 [From Chantix] Latex, Natural Rubber AdvReac Rash/Hives Verified 09/26/24 20:30 nicotine patch AdvReac Unknown Rash/Hives Uncoded 09/26/24 18:06 Review of Systems ROS Statement: Those systems with pertinent positive or pertinent negative responses have been documented in the HPI. ROS Other: All systems not noted in ROS Statement are negative. Past Medical History Past Medical History: Asthma, Fibromyalgia, GERD/Reflux, Hyperlipidemia, Hypertension, Myocardial Infarction (TX), Rheumatoid Arthritis (RA), Skin Disorder Additional Past Medical History / Comment(s): HEART PALPITATIONS-RESOLVED. PSORIASIS HEAD. CHRONIC BACK, NECK PAIN; BOTH ARMS & SHOULDERS ALSO; NUMBNESS IN ARMS, GASTRITIS Last Myocardial Infarction Date:: 1998 History of Any Multi-Drug Resistant Organisms: None Reported Past Surgical History: Bladder Surgery, Hysterectomy, Orthopedic Surgery, Tonsillectomy Additional Past Surgical History / Comment(s): RT HEEL SURG., EPIDURAL INJECTIONS( BACK AND HIPS); Trigger Fingers both handsX3. MULT PAIN PROC. CTR LT HAND X2/ctr rt hand ,TRIGGER FINGER LEFT HAND , COLONOSCOPY, JAW SX, LASER SPINE SX, Past Anesthesia/Blood Transfusion Reactions: Previous Problems w/ Anesthesia, Motion Sickness, Postoperative Nausea & Vomiting (PONV) Additional Past Anesthesia/Blood Transfusion Reaction / Comment(s): SLOW TO AWAK EN FROM ANESTHESIA YEARS AGO X1. Past Psychological History: Anxiety, Depression, Panic Disorder Smoking Status: Former smoker, Vaper Past Alcohol Use History: Rare Past Drug Use History: None Reported - Past Family History Father Family Medical History: Cancer, Deep Vein Thrombosis (DVT) Additional Family Medical History / Comment(s): SKIN CANCER General Exam Limitations: no limitations General appearance: alert, in no apparent distress Head exam: Present: atraumatic, normocephalic, normal inspection Neck exam: Present: normal inspection. Absent: tenderness, meningismus, lymphadenopathy Respiratory exam: Present: normal lung sounds bilaterally. Absent: respiratory distress, wheezes, rales, rhonchi, stridor Cardiovascular Exam: Present: regular rate, normal rhythm, normal heart sounds. Absent: systolic murmur, diastolic murmur, rubs, gallop, clicks Extremities exam: Present: normal inspection, full ROM, normal capillary refill. Absent: tenderness, pedal edema, joint swelling, calf tenderness Neurological exam: Present: alert, oriented X3, CN II-XII intact Psychiatric exam: Present: normal affect, normal mood, other (Tearful on exam) Skin exam: Present: warm, dry, intact, normal color. Absent: rash Course Vital Signs 09/26/24 18:07 Temperature 97.4 F L Pulse Rate 98 Respiratory 18 Rate Blood Pressure 124/78 O2 Sat by Pulse 97 Oximetry Medical Decision Making - Medical Decision Making Was pt. sent in by a medical professional or institution (, PA, PROGRAM ENGINEER, urgent care, hospital, or assisted...) When possible be specific @ -No Did you speak to anyone other than the patient for history (EMS, parent, family, police, friend...)? What history was obtained from this source @ -Daughter supplemented history Did you review nursing and triage notes (agree or disagree)? Why? @ -I reviewed and agree with nursing and triage notes Were old charts reviewed (outside hosp., previous admission, EMS record, old E KG, old radiological studies, urgent care reports/EKG's, assisted records)? Report findings @ -No old charts were reviewed Differential Diagnosis (chest pain, altered mental status, abdominal pain women, abdominal pain men, vaginal bleeding, weakness, fever, dyspnea, syncope, headache, dizziness, GI bleed, back pain, seizure, CVA, palpatations, mental health, musculoskeletal)? @ -Differential Weakness: Hypoglycemia, shock, sepsis, hyponatremia, anemia, infection, TX, ETOH, adverse medicine reaction, overdose, stroke, this is not meant to be an all-inclusive list. EKG interpreted by me (3pts min.). @ -As above X-rays interpreted by me (1pt min.). @ -None done CT interpreted by me (1pt min.). @ -None done U/S interpreted by me (1pt. min.). @ -None done What testing was considered but not performed or refused? (CT, X-rays, U/S, labs)? Why? @ -None What meds were considered but not given or refused? Why? @ -None Did you discuss the management of the patient with other professionals (professionals i.e. , PA, PROGRAM ENGINEER, lab, RT, psych nurse, director of social media marketing, cable installation manager, teacher, immigration services officer, case management manager)? Give summary @ -Poison control was called who stated that toxicology screening is not necessary in this case. They stated that memory loss is common and will resolve on its own. I spoke with Caridad from EPS who recommends discharge. Patient's mother will administer patient's meds from now on Was smoking cessation discussed for >3mins.? @ -No Was critical care preformed (if so, how long)? @ -No Were there social determinants of health that impacted care today? How? (Homelessness, low income, unemployed, alcoholism, drug addiction, transportation, low edu. Level, literacy, decrease access to med. care, assisted, rehab)? @ -No Was there de-escalation of care discussed even if they declined (Discuss DNR or withdrawal of care, Hospice)? DNR status @ -No What co-morbidities impacted this encounter? (DM, HTN, Smoking, COPD, CAD, Cancer, CVA, ARF, Chemo, Hep., AIDS, mental health diagnosis, sleep apnea, morbid obesity)? @ -None Was patient admitted / discharged? Hospital course, mention meds given and route, prescriptions, significant lab abnormalities, going to OR and other pertinent info. @ -Discharge. This is a 48-year-old female presenting to the ER for overdose. Patient accidentally took 6 Ambien last night and has had weakness and memory loss today. Denies suicidal or homicidal ideation. Vital signs within acceptable limits. Lab work unremarkable. Urine toxicology screen positive for opioids, otherwise unremarkable. EKG reveals normal sinus rhythm with first degree AV block. Poison control was contacted who stated monitoring is not necessary and symptoms will resolve on their own. Patient was medically cleared at this time to be seen by EPS. I spoke with Caridad from EPS who recommends discharge. Patient's medication will be administered by her mother from now on. Appropriate return precautions and follow-up care discussed. Case was discusse d with my ED attending Dr. Roskopp. Undiagnosed new problem with uncertain prognosis? @ -No Drug Therapy requiring intensive monitoring for toxicity (Heparin, Nitro, Insulin, Cardizem)? @ -No Were any procedures done? @ -No Diagnosis/symptom? @ -Overdose Acute, or Chronic, or Acute on Chronic? @ -Acute Uncomplicated (without systemic symptoms) or Complicated (systemic symptoms)? @ -Uncomplicated Side effects of treatment? @ -No Exacerbation, Progression, or Severe Exacerbation? @ -No Poses a threat to life or bodily function? How? (Chest pain, [place], [place], pneumonia, PE, COPD, DKA, ARF, appy, cholecystitis, CVA, Diverticulitis, Homicidal, Suicidal, threat to staff... and all critical care pts) @ -Not at this time - Lab Data Result diagrams: 09/26/24 18:48 09/26/24 18:48 Lab Results 09/26/24 09/26/24 09/26/24 Range/Units 18:48 18:48 18:48 WBC 7.2 (3.8-10.6) k/uL RBC 4.38 (3.80-5.40) m/uL Hgb 14.2 (11.4-16.0) gm/dL Hct 39.7 (34.0-46.0) % MCV 90.6 (80.0-100.0) fL MCH 32.4 (25.0-35.0) pg MCHC 35.7 (31.0-37.0) g/dL RDW 12.0 (11.5-15.5) % Plt Count 193 (150-450) k/uL MPV 7.2 Neutrophils % 69 % Lymphocytes % 24 % Monocytes % 4 % Eosinophils % 1 % Basophils % 1 % Neutrophils # 5.0 (1.3-7.7) k/uL Lymphocytes # 1.7 (1.0-4.8) k/uL Monocytes # 0.3 (0-1.0) k/uL Eosinophils # 0.1 (0-0.7) k/uL Basophils # 0.0 (0-0.2) k/uL Sodium (137-145) mmol/L Potassium (3.5-5.1) mmol/L Chloride (98-107) mmol/L Carbon Dioxide (22-30) mmol/L Anion Gap mmol/L BUN (7-17) mg/dL Creatinine (0.52-1.04) mg/dL Est GFR (CKD-EPI)AfAm (>60 ml/min/1.73 sqM) Est GFR (CKD-EPI)NonAf (>60 ml/min/1.73 sqM) Glucose (74-99) mg/dL Calcium (8.4-10.2) mg/dL Total Bilirubin (0.2-1.3) mg/dL AST (14-36) U/L ALT (4-34) U/L Alkaline Phosphatase (38-126) U/L Total Protein (6.3-8.2) g/dL Albumin (3.5-5.0) g/dL Urine HCG, Qual Not Detected (Not Detectd) Salicylates mg/dL Urine Opiates Screen Detected H (NotDetected) Ur Oxycodone Screen Not Detected (NotDetected) Urine Methadone Screen Not Detected (NotDetected) Acetaminophen ug/mL Ur Barbiturates Screen Not Detected (NotDetected) U Tricyclic Antidepress Not Detected (NotDetected) Ur Phencyclidine Scrn Not Detected (NotDetected) Ur Amphetamines Screen Not Detected (NotDetected) U Methamphetamines Scrn Not Detected (NotDetected) U Benzodiazepines Scrn Not Detected (NotDetected) Urine Cocaine Screen Not Detected (NotDetected) U Marijuana (THC) Screen Not Detected (NotDetected) Serum Alcohol mg/dL 09/26/24 Range/Units 18:48 WBC (3.8-10.6) k/uL RBC (3.80-5.40) m/uL Hgb (11.4-16.0) gm/dL Hct (34.0-46.0) % MCV (80.0-100.0) fL MCH (25.0-35.0) pg MCHC (31.0-37.0) g/dL RDW (11.5-15.5) % Plt Count (150-450) k/uL MPV Neutrophils % % Lymphocytes % % Monocytes % % Eosinophils % % Basophils % % Neutrophils # (1.3-7.7) k/uL Lymphocytes # (1.0-4.8) k/uL Monocytes # (0-1.0) k/uL Eosinophils # (0-0.7) k/uL Basophils # (0-0.2) k/uL Sodium 137 (137-145) mmol/L Potassium 4.2 (3.5-5.1) mmol/L Chloride 102 (98-107) mmol/L Carbon Dioxide 29 (22-30) mmol/L Anion Gap 6 mmol/L BUN 13 (7-17) mg/dL Creatinine 0.74 (0.52-1.04) mg/dL Est GFR (CKD-EPI)AfAm >90 (>60 ml/min/1.73 sqM) Est GFR (CKD-EPI)NonAf >90 (>60 ml/min/1.73 sqM) Glucose 149 H (74-99) mg/dL Calcium 9.6 (8.4-10.2) mg/dL Total Bilirubin 0.5 (0.2-1.3) mg/dL AST 26 (14-36) U/L ALT 27 (4-34) U/L Alkaline Phosphatase 83 (38-126) U/L Total Protein 7.1 (6.3-8.2) g/dL Albumin 4.4 (3.5-5.0) g/dL Urine HCG, Qual (Not Detectd) Salicylates <1.0 mg/dL Urine Opiates Screen (NotDetected) Ur Oxycodone Screen (NotDetected) Urine Methadone Screen (NotDetected) Acetaminophen <10.0 ug/mL Ur Barbiturates Screen (NotDetected) U Tricyclic Antidepress (NotDetected) Ur Phencyclidine Scrn (NotDetected) Ur Amphetamines Screen (NotDetected) U Methamphetamines Scrn (NotDetected) U Benzodiazepines Scrn (NotDetected) Urine Cocaine Screen (NotDetected) U Marijuana (THC) Screen (NotDetected) Serum Alcohol <10 mg/dL - EKG Data -: EKG Interpreted by Me EKG Comments: EKG reveals sinus rhythm with first-degree AV block. Ventricular rate 81 bpm, OK interval 237, QRS duration was 71, QT/QTc 372/409 Disposition Clinical Impression: Overdose Disposition: HOME SELF-CARE Condition: Stable Instructions (If sedation given, give patient instructions): Adult Overdose (ED) Additional Instructions: Please return to the Emergency Department if symptoms worsen or any other concerns. Is patient prescribed a controlled substance at d/c from ED?: No Referrals: Tone Sanford MD [Primary Care Provider] - 1-2 days Time of Disposition: 22:29
[2024-09-26 20:02] LABS: Basophils % (A) 1 %; Eosinophils # (A) 0.1 k/uL (0-0.7); Eosinophils % (A) 1 %; HCT 39.7 % (34.0-46.0); HGB 14.2 gm/dL (11.4-16.0); Lymphocytes # (A) 1.7 k/uL (1.0-4.8); Lymphocytes % (A) 24 %; MCH 32.4 pg (25.0-35.0); MCHC 35.7 g/dL (31.0-37.0); MCV 90.6 fL (80.0-100.0); Mean Platelet Volume 7.2; Monocytes # (A) 0.3 k/uL (0-1.0); Monocytes % (A) 4 %; Neutrophils % (A) 69 %; Platelet Count 193 k/uL (150-450); RBC 4.38 m/uL (3.80-5.40); WBC 7.2 k/uL (3.8-10.6)
[2024-09-26 20:08] LABS: ALT 27 U/L (4-34); AST 26 U/L (14-36); Acetaminophen <10.0 ug/mL; African American GFR (CKD) >90 (>60 ml/min/1.73 sqM); Albumin 4.4 g/dL (3.5-5.0); Alcohol <10 mg/dL; Alkaline Phosphatase 83 U/L (38-126); Anion Gap 6 mmol/L; Blood Urea Nitrogen 13 mg/dL (7-17); Calcium 9.6 mg/dL (8.4-10.2); Carbon Dioxide 29 mmol/L (22-30); Chloride 102 mmol/L (98-107); Glucose 149 mg/dL (74-99); Non-African American GFR(CKD) >90 (>60 ml/min/1.73 sqM); Potassium 4.2 mmol/L (3.5-5.1); Salicylate <1.0 mg/dL; Sodium 137 mmol/L (137-145); Total Bilirubin 0.5 mg/dL (0.2-1.3); Total Protein 7.1 g/dL (6.3-8.2)
[2024-09-26 20:30] LABS: Amphetamine Screen,Urine Not Detected (NotDetected); Barbiturate Screen,Urine Not Detected (NotDetected); Benzodiazepines Screen,Urine Not Detected (NotDetected); Cocaine Screen,Urine Not Detected (NotDetected); Methadone Screen, Urine Not Detected (NotDetected); Opiate Screen,Urine Detected (NotDetected); Oxycodone Screen, Urine Not Detected (NotDetected); Phencyclidine Screen,Urine Not Detected (NotDetected); Tricyclic Antidepressant,Urine Not Detected (NotDetected); Urn Cannabinoid Scrn Not Detected (NotDetected)
[2024-09-26 22:51] VITALS: BP 115/62; PULSE 60; TEMP 98.7
== END 2024-09-26 22:51 | disposition home or self-care (01) ==
LOC: EC 18:04
DX: T42.6X1A Poisoning by other antiepileptic and sedative-hypnotic drugs, accidental (unintentional), initial encounter (principal); I44.0 Atrioventricular block, first degree; F17.290 Nicotine dependence, other tobacco product, uncomplicated; Z88.8 Allergy status to other drugs, medicaments and biological substances; Z91.040 Latex allergy status; Z91.010 Allergy to peanuts
CPT/HCPCS: 82075; 36415; 93005; 80053; 85025; 81025; 80306; 80143; 80179; 99284; G0480; 80320

== ENCOUNTER → 2025-05-16 | Outpatient (CLI) | payer MEDICARE, OTHER ==
--- NOTE | 2025-05-16 16:24 | US ---
EXAMINATION TYPE: US thyroid st tissue head/neck DATE OF EXAM: 05/16/2025 COMPARISON: NONE CLINICAL INDICATION: Female, 49 years old with history of E04.1 Thyroid nodule; thyroid nodule seen o n MRI TECHNIQUE: Grayscale and color Doppler imaging of the thyroid gland. FINDINGS: GLAND SIZE: Right Lobe: 5.0 x 1.8 x 2.0 cm Overall Parenchyma: homogeneous Left Lobe: 4.5 x 1.4 x 1.5 cm Overall Parenchyma: homogeneous Isthmus Thickness: .3 cm NODULES RIGHT: # of nodules measured on right: 1 1. 2.0 X 1.2 x 1.6 cm, mid , mixed cystic and solid, isoechoic TR 3 nodule, which is wider than edda l, with smooth margins, without echogenic foci. Prior size: no previous LEFT: # of nodules measured on left:0 ISTHMUS: # of nodules measured in the isthmus: 0 Bilateral neck scanned, no evidence of lymphadenopathy. IMPRESSION: Solitary mixed solid cystic TR3 nodule in the right lobe measuring 2.0 cm. 2017 ACR TI-RADS LEVEL: TI-RADS 3 - Mildly Suspicious: Follow if > 1.5 cm, FNA if > 2.5 cm [facility], Workstation: [id number], 05/16/2025 4:21 PM
== END | disposition home or self-care (01) ==
LOC: RADUSWWP 15:44
PROVIDERS: ATTEND Internal Medicine
DX: E04.1 Nontoxic single thyroid nodule (principal)
CPT/HCPCS: 76536